=== PATIENT | female | born 1990 | race African-American/Black ===

== ENCOUNTER 2016-10-04 01:25 | Emergency (ER) | payer OTHER ==
[2016-10-04] MEDS ORDERED: cefTRIAXone 250 MG VIAL IM STA (04:07)
[2016-10-04] MEDS ORDERED: AZITHROMYCIN 250 MG TABLET PO STA (04:07)
[2016-10-04] MEDS ORDERED: cefTRIAXone 250 MG VIAL ONE (04:16)
[2016-10-04] MEDS ORDERED: AZITHROMYCIN 250 MG TABLET PO ONE (04:16)
[2016-10-04] MEDS ORDERED: LIDOCAINE-MPF 1% 5 ML VIAL ONE (04:16)
== END 2016-10-04 04:38 | disposition home or self-care (01) ==
DX: N72 Inflammatory disease of cervix uteri (principal); R03.0 Elevated blood-pressure reading, without diagnosis of hypertension
CPT/HCPCS: 81001; 81025; 87077; 87086; 87181; 87210; 87491; 87591; 96372; 99283; A9270

== ENCOUNTER 2020-05-03 04:34 | Emergency (ER) | payer OTHER ==
--- NOTE | 2020-05-03 05:23 | ED Physician Documentation ---
PD HPI ABD PAIN - Stated complaint Stated Complaint: ABD PX - Chief complaint Chief Complaint: Abd Pain - History obtained from History obtained from: Patient - History of Present Illness Timing - onset: How many days ago (3) Timing - details: Intermittant, Waxing and waning Pain level now: 3 Quality: Pain, Other (burning) Location: All over / everywhere Improved by: Other (no ameliorating factors) Worsened by: Other (no exacerbating factors) Associated symptoms: Nausea. No: Vomiting Similar symptoms before: Has not had sx before - Additional information Additional information: c/o episodic abdominal burning pain since 3 days ago, occasionally associated with nausea and mild fatigue. she had a single alcoholic drink 4 days ago and thus thought the following day was a mild hangover, and she felt better the following day. yesterday, the burning abdominal discomfort returned and thus she was seen at [facility], no tests nor specific diagnosis. she presents at thus time due to being woken 2 AM with burning abdominal discomfort, diffuse, that prevented her from falling back asleep. denies nausea at this time. Review of Systems Constitutional: reports: Fatigue. denies: Fever Cardiac: reports: Reviewed and negative Respiratory: reports: Reviewed and negative GI: reports: Abdominal Pain. denies: Nausea, Vomiting, Constipation, Diarrhea, Hematemesis, Bloody / black stool : denies: Dysuria, Frequency, Now EGA PD PAST MEDICAL HISTORY - Past Medical History Past Medical History: No - Past Surgical History Past Surgical History: No - Present Medications Home Medications: Ambulatory Orders Medication Instructions Recorded Confirmed Ondansetron Odt [Zofran] 4 mg TL Q6H PRN #10 tablet 05/16/15 05/03/20 - Allergies Allergies/Adverse Reactions: Allergies Allergy/AdvReac Type Severity Reaction Status Date / Time No Known Drug Allergies Allergy Verified 05/03/20 04:46 - Social History Does the pt smoke?: No Smoking Status: Never smoker Does the pt drink ETOH?: No Does the pt have substance abuse?: No - Immunizations Immunizations are current?: Yes - POLST Patient has POLST: No PD ED PE NORMAL - Vitals Vital signs reviewed: Yes - General General: Alert and oriented X 3, No acute distress, Well developed/nourished - Cardiac Cardiac: RRR, No murmur - Respiratory Respiratory: No respiratory distress, Clear bilaterally - Abdomen Abdomen: Normal bowel sounds, Soft, Non tender, Non distended, No organomegaly - Back Back: No CVA TTP Results - Vitals Vitals: Vital Signs - 24 hr 05/03/20 05/03/20 04:41 07:24 Temperature 36.6 C Heart Rate 95 88 Respiratory 18 14 Rate Blood Pressure 126/80 126/79 O2 Saturation 98 99 Oxygen O2 Source Room air - Labs Labs: Laboratory Tests 05/03/20 05/03/20 05/03/20 05:15 05:50 05:50 WBC 7.4 RBC 4.46 Hgb 13.1 Hct 40.5 MCV 90.8 MCH 29.4 MCHC 32.3 RDW 13.2 Plt Count 304 MPV 9.8 Neut # (Auto) 5.5 Lymph # (Auto) 1.4 L Hand # (Auto) 0.4 Eos # (Auto) 0.1 Baso # (Auto) 0.0 Absolute Nucleated RBC 0.00 Nucleated RBC % 0.0 Sodium 135 Potassium 4.2 Chloride 103 Carbon Dioxide 24 Anion Gap 8.0 BUN 12 Creatinine 0.8 Estimated GFR (MDRD) 103 Glucose 102 H Calcium 9.4 Total Bilirubin 0.5 AST 16 ALT 18 Alkaline Phosphatase 60 Total Protein 7.7 Albumin 4.1 Globulin 3.6 Albumin/Globulin Ratio 1.1 Lipase 37 Urine Color YELLOW Urine Clarity CLEAR Urine pH 6.0 Ur Specific Concan >=1.030 H Urine Protein NEGATIVE Urine Glucose (UA) NEGATIVE Urine Ketones NEGATIVE Urine Occult Blood NEGATIVE Urine Nitrite NEGATIVE Urine Bilirubin NEGATIVE Urine Urobilinogen 0.2 (NORMAL) Ur Leukocyte Esterase NEGATIVE Ur Microscopic Review NOT INDICATED Urine Culture Comments NOT INDICATED - Rads (name of study) abd. xrays Radiology: Prelim report reviewed, See rad report PD MEDICAL DECISION MAKING - ED course Complexity details: reviewed results, re-evaluated patient, considered differential, d/w patient Departure - Departure Disposition: 01 Home, Self Care Clinical Impression: Abdominal pain Condition: Good Instructions: ED Abdominal Pain Unkn Cause, ED Constipation Discharge Date/Time: 05/03/20 07:24
[2020-05-03 05:26] LABS: BILIRUBIN,URINE NEGATIVE (NEGATIVE); GLUCOSE, URINE (UA) NEGATIVE (NEGATIVE); KETONES,URINE (UA) NEGATIVE (NEGATIVE); LEUKOCYTE ESTERASE, URINE NEGATIVE (NEGATIVE); NITRITE,URINE NEGATIVE (NEGATIVE); OCCULT BLOOD,URINE NEGATIVE (NEGATIVE); PROTEIN,URINE NEGATIVE (NEGATIVE); UROBILINOGEN,URINE 0.2 (NORMAL) E.U./dL (NORMAL)
[2020-05-03 05:28] LABS: CLARITY,URINE CLEAR (CLEAR)
[2020-05-03 05:56] LABS: BASOPHILS % (AUTO) 0.3 %; EOSINOPHILS # (AUTO) 0.1 10^3/uL (0.0-0.7); HGB - HEMOGLOBIN 13.1 g/dL (12.0-16.0); LYMPHOCYTES # (AUTO) 1.4 10^3/uL (1.5-3.5); MEAN CORPUSCULAR HEMOGLOBIN 29.4 pg (27.0-31.0); MEAN CORPUSCULAR HGB CONC 32.3 g/dL (32.0-36.0); MEAN CORPUSCULAR VOLUME 90.8 fL (81.0-99.0); MEAN PLATELET VOLUME 9.8 fL (7.9-10.8); MONOCYTES # (AUTO) 0.4 10^3/uL (0.0-1.0); NEUTROPHILS # (AUTO) 5.5 10^3/uL (1.5-6.6); NEUTROPHILS % (AUTO) 74.4 %; PLT - PLATELET COUNT 304 10^3/uL (130-450); RED BLOOD COUNT 4.46 10^6/uL (4.20-5.40); RED CELL DISTRIBUTION WIDTH 13.2 % (12.0-15.0); WHITE BLOOD COUNT 7.4 x10^3/uL (4.8-10.8)
[2020-05-03 06:09] LABS: ALBUMIN 4.1 g/dL (3.2-5.5); ALBUMIN/GLOBULIN RATIO 1.1 (1.0-2.2); BILIRUBIN,TOTAL 0.5 mg/dL (0.2-1.0); CALCIUM 9.4 mg/dL (8.5-10.3); CREATININE 0.8 mg/dL (0.4-1.0); TOTAL PROTEIN 7.7 g/dL (6.7-8.2)
[2020-05-03] MEDS ORDERED: MAGNESIUM CITRATE 296 ML BOTTLE PO STA (07:00)
[2020-05-03] MEDS ORDERED: ACETAMINOPHEN 325 MG TABLET PO STA (07:01)
[2020-05-03] MEDS ORDERED: LIDOCAINE VISCOUS 2% 15 ML UDC MM STA (07:11)
[2020-05-03] MEDS ORDERED: MAG HYDROX/AL HYDROX/SIMETH 30 ML UDC PO STA (07:12)
[2020-05-03 07:25] VITALS: BP 126/79
--- NOTE | 2020-05-03 08:10 | XRAY Report ---
PROCEDURE: Abdomen Acute INDICATIONS: abd. pain TECHNIQUE: One view chest and two views of the abdomen were acquired. COMPARISON: None FINDINGS: Surgical changes and devices: Intrauterine device projects over the midline of the lower pelvis.. Chest: Lungs are clear. Heart size is normal. No pleural effusions. No pneumoperitoneum. Abdomen: Bowel gas pattern is normal. Moderate amount of stool noted throughout the colon. No suspic ious calcifications. Visualized solid organ contours appear normal. Bones: No suspicious bony lesions. IMPRESSION: Moderate colonic fecal loading. Please correlate with clinical data. Reviewed by: Monica Hameed MD, PhD on 05/03/2020 8:08 AM PDT Approved by: Monica Hameed MD, PhD on 05/03/2020 8:08 AM PDT Station ID: [id number]
== END 2020-05-03 07:24 | disposition home or self-care (01) ==
LOC: ED 04:34
DX: R10.84 Generalized abdominal pain (principal); R11.0 Nausea; R53.83 Other fatigue
CPT/HCPCS: 36415; 74022; 80053; 81003; 83690; 85025; 99284; A9270; 81001; 81025; 87086

== ENCOUNTER 2020-12-24 04:06 | Outpatient (CLI) | payer OTHER | END 2020-12-24 04:07 | disposition EMS.NT | LOC: EMS 04:06 | DX: O99.891 Other specified diseases and conditions complicating pregnancy (principal); R10.9 Unspecified abdominal pain; Z3A.00 Weeks of gestation of pregnancy not specified ==

== ENCOUNTER 2020-12-24 04:50 | Outpatient (CLI) | payer OTHER | END 2020-12-24 04:51 | disposition short-term general hospital (02) | LOC: EMS 04:50 | DX: O99.891 Other specified diseases and conditions complicating pregnancy (principal); R10.9 Unspecified abdominal pain; Z3A.00 Weeks of gestation of pregnancy not specified | CPT/HCPCS: A0425; A0429 ==

== ENCOUNTER 2021-04-10 09:09 | Outpatient (CLI) | payer OTHER ==
--- NOTE | 2021-04-10 13:47 | MRI Report ---
PROCEDURE: Shoulder LT W/O INDICATIONS: PAIN IN LEFT SHOULDER TECHNIQUE: Noncontrast oblique coronal T2 fast spin echo with fat saturation, oblique sagittal T1 spin echo and T2 fast spin echo with fat saturation, axial T1 spin echo and T2 fast spin echo with fat saturation t hrough the shoulder. COMPARISON: None. FINDINGS: Image quality: Excellent. Rotator cuff: Mild diffuse T2 signal elevation throughout the supraspinatus and infraspinatus tendon s at the humeral insertion sites, indicating tendinopathy. The supraspinatus, infraspinatus, and subs capularis tendons appear intact throughout. No rotator cuff muscle atrophy on sagittal images. Bones and bursae: No bone marrow contusions or fractures. No acromioclavicular joint degeneration. The acromion demonstrates conventional anatomy, without an os acromiale. No pathologic subacromial/ subdeltoid bursal fluid is present. Capsule and soft tissues: There is mild T2 signal elevation within the anterior glenoid with mild irr egularity of the overlying glenoid labrum. The long head of the biceps tendon demonstrates normal loc ation and morphology. The rotator interval appears normal, without fibrosis. The coracohumeral liga ment is normal in thickness. IMPRESSION: 1. Supraspinatus and infraspinatus tendinopathy. No evidence of rotator cuff tear. 2. Possible subtle anteroinferior glenoid labral tear. Reviewed by: Shawnee Marx MD on 04/10/2021 1:45 PM PDT Approved by: Shawnee Marx MD on 04/10/2021 1:45 PM PDT Station ID: [id number]
== END 2021-04-10 09:10 | disposition home or self-care (01) ==
LOC: DI 09:09
PROVIDERS: ATTEND Family Medicine
DX: M75.82 Other shoulder lesions, left shoulder (principal); R93.6 Abnormal findings on diagnostic imaging of limbs

== ENCOUNTER 2021-05-14 17:55 | Emergency (ER) | payer OTHER ==
[2021-05-14 18:13] VITALS: BP 148/93
--- NOTE | 2021-05-14 18:46 | ED Physician Documentation ---
History of Present Illness - Stated complaint Stated Complaint: TENDER CALF MUSCLES - Chief complaint Chief Complaint: Ext Problem - History obtained from History obtained from: Patient - History of Present Illness Pain level max: 6 Pain level now: 4 - Additonal information Additional information: Patient is a 30-year-old female who states that she has had calf pain since December of this year when she had a child. She states that she recently went to an orthopedist for her shoulder and saw on the paperwork that it asked if she had pain in her calf and she started googling and realized this could be a sign of a DVT. Came in for evaluation tonight. Nothing makes it better or worse. Review of Systems Constitutional: denies: Fever, Chills Cardiac: denies: Chest pain / pressure, Palpitations Respiratory: denies: Dyspnea, Cough GI: denies: Vomiting, Diarrhea : denies: Now EGA Skin: denies: Rash Musculoskeletal: denies: Neck pain, Back pain Neurologic: denies: Headache PD PAST MEDICAL HISTORY - Past Medical History Past Medical History: Yes Cardiovascular: None Respiratory: None Neuro: Headaches, Migraines Endocrine/Autoimmune: None GI: GERD MOLD INSPECTOR: None : None HEENT: Other Psych: Anxiety, ADD/ADHD Musculoskeletal: Osteoarthritis Derm: Eczema - Past Surgical History Past Surgical History: No - Present Medications Home Medications: Ambulatory Orders Medication Instructions Recorded Confirmed Dextroamphetamine/Amphetamine 20 mg PO DAILY 05/14/21 05/14/21 [Adderall 20 mg Tablet] Mirtazapine 7.5 mg PO HS 05/14/21 05/14/21 Rizatriptan Benzoate [Rizatriptan] 5 mg PO DAILY PRN 05/14/21 05/14/21 Sertraline HCl 100 mg ORAL DAILY 05/14/21 05/14/21 - Allergies Allergies/Adverse Reactions: Allergies Allergy/AdvReac Type Severity Reaction Status Date / Time No Known Drug Allergies Allergy Verified 05/14/21 18:07 - Social History Does the pt smoke?: No Smoking Status: Never smoker Does the pt drink ETOH?: No Does the pt have substance abuse?: No - Immunizations Immunizations are current?: Yes - POLST Patient has POLST: No PD ED PE NORMAL - Vitals Vital signs reviewed: Yes - General General: Alert and oriented X 3, No acute distress, Well developed/nourished - HEENT HEENT: PERRL, Moist mucous membranes - Neck Neck: Supple, no meningeal sign - Cardiac Cardiac: RRR, Strong equal pulses - Respiratory Respiratory: No respiratory distress, Clear bilaterally - Derm Derm: Warm and dry - Extremities Extremities: No edema, Other (Mild left calf tenderness. No significant swe lling. Neurovascular intact. No skin changes.) - Neuro Neuro: Alert and oriented X 3 - Psych Psych: Normal mood, Normal affect Results - Vitals Vitals: Vital Signs - 24 hr 05/14/21 18:09 Temperature 36.2 C L Heart Rate 103 H Respiratory 18 Rate Blood Pressure 148/93 H O2 Saturation 100 Oxygen O2 Source Room air - Rads (name of study) Duplex ultrasound left lower extremity Radiology: Final report received, EMP read contemporaneously, See rad report (No acute DVT. Small Vargas's cyst) PD MEDICAL DECISION MAKING - ED course Complexity details: reviewed results, re-evaluated patient, considered differential, d/w patient ED course: Patient does not have a DVT but does have a Vargas's cyst on ultrasound. Likely the cause of her symptoms. We will continue supportive care and have her follow-up with her doctor for further care. Patient counseled regarding signs and symptoms for which I believe and urgent re-evaluation would be necessary. Patient with good understanding of and agreement to plan and is comfortable going home at this time This document was made in part using voice recognition software. While efforts are made to proofread this document, sound alike and grammatical errors may occur. Departure - Departure Disposition: 01 Home, Self Care Clinical Impression: Vargas cyst Qualifiers: Laterality: left Qualified Code(s): M71.22 - Synovial cyst of popliteal space [Vargas], left knee Condition: Good Instructions: ED Cyst Vargas Follow-Up: SIDNEY HATCH ARNP [Primary Care Provider] - As Needed Comments: There is no evidence of DVT on your ultrasound today. Please follow-up with your doctor for further care. You do have a small Vargas's cyst. This is not dangerous. Discharge Date/Time: 05/14/21 19:10
--- NOTE | 2021-05-14 19:25 | Ultrasound Report ---
PROCEDURE: Duplex Ext Veins Left INDICATIONS: L leg pain TECHNIQUE: Real-time imaging, as well as color and pulse Doppler interrogation, were performed of the lower extr emity deep veins from the inguinal ligament to the popliteal fossa. COMPARISON: None. FINDINGS: The deep veins are normally compressible, and free of intraluminal thrombus. Color and pu lse Doppler demonstrate normal phasic intraluminal flow. There is normal augmentation response to di stal compression maneuver. Small posterior left knee fluid collection compatible with a Vargas's cyst. It measures 2.7 x 0.9 x 1. 7 cm. IMPRESSION: Negative for deep venous thrombosis of the left lower extremity. 2.7 cm Vargas's/popliteal cyst. Reviewed by: Carlton Lawson MD on 05/14/2021 7:24 PM PDT Approved by: Carlton Lawson MD on 05/14/2021 7:24 PM PDT Station ID: [id number]
== END 2021-05-14 19:10 | disposition home or self-care (01) ==
LOC: ED 17:55
DX: M71.22 Synovial cyst of popliteal space [Baker], left knee (principal)
CPT/HCPCS: 99283

== ENCOUNTER 2021-05-22 08:18 | Outpatient (CLI) | payer OTHER ==
[2021-05-22 09:18] VITALS: BP 120/80
--- NOTE | 2021-05-22 09:18 | SLEEP CARE CONSULTATION ---
Information from patient questionnaire entered by Barbara Ko. I have reviewed and concur with the information entered by Barbara Ko. This document represents the service I personally performed and the decisions made by me, Britany Trammell ARNP. History of Present Illness Service Date and Time: 05/22/2021 08 Reason for Visit: New patient Chief Complaint: reports: Insomnia, Unrefreshed sleep, Snoring, Excessive daytime sleepiness, Frequent awakenings at night Date of Onset: 2012 Usual bedtime: 2029 Time it takes to fall asleep: sometimes I cannot fall asleep Snores at night: Yes Observed to quit breathing while asleep: No Sleeps alone due to snoring: Yes Number of times waking at night: 2-3 Reasons for waking at night: reports: Snoring, Gasping for air, Other (noise, unknown reason) Toss, Turn, or Twitch while sleeping: Yes Recalls having dreams: Yes (sometimes) Usually gets out of bed at: 0600, cannot sleep in Feels refreshed in the morning: No Morning headache: Yes (3 times a week, takes Maxalt and they go away) Sleepy or fatigued during the day: Yes Ever fallen asleep while driving: No (almost; drowsy driving) Takes day naps: No (cannot, feels disoriented if she does) Dreams during day naps: No Prior sleep studies: No Additional HPI information: I had the pleasure of seeing ALONDRA BABCOCK today regarding the possibility of her having a sleep disorder. Her current complaints are excessive daytime sleepiness, frequent night awakenings, insomnia, snoring and unrefreshed sleep. She states she has not been able to sleep for a couple years. About a year after joining [employer] she started to not be able to sleep. 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 She tried lots of OTC meds to help her sleep. She was then put on Trazodone which did help her got to sleep for a while but then stopped working. She is now on Mirtazepine but she is very sleepy at work when using this medication. She will even fall asleep standing up unless she is walking around. She has a hard time going to sleep and once asleep will wake up frequently throughout the night. She states her has told her she snores and she has heard herself snoring. She will wake up feeling like she needs to take a deep breath and her heart is beating fast. Her has not noticed her having any pauses in breathing. - Parasomnia Symptoms Ever been unable to move upon waking from sleep: Yes (not for a couple months; occasional) Walks in sleep: No Talks in sleep: Yes Ever acted out dreams in sleep: Yes (not sure) Ever felt weak in the knees when startled or emotional: Yes Bothered by creepy, crawly, restless sensations in legs: Yes (every night; she is always moving) Problems with memory or concentration: Yes (both; memory is getting worse, taking adderall for concentration) Subjective Initial Madison Sleepiness Scale score: 9 (in 2020) Past Medical History Past Medical History: reports: Dysphagia, Arthritis, Anxiety, Depression, GERD, Attention deficit, Other (eczema, pain in left shoulder torn labriel, pain in back, mcallister cyst left calf diagnosed, right undiagnosed, psoriasis, dermatitis) Social History 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 Patient is Single and lives in [place]. Have you smoked in the past 12 months: No Alcohol use: No Caffeine use: No Family History Family history of sleep disordered breathing: Yes Family Hx Sleep Apnea: Mother: Snoring, Sleep apnea - Untreated, Father: Snoring, Sleep apnea - Treated, Sibling: Snoring, Sleep apnea - Untreated, Grandparent: Snoring, Sleep apnea - Treated Allergies and Home Medications Drug allergies reviewed: Yes (NKDA) Home medication list reviewed: Yes Allergy and home medication list: Sertraline 100 mg Mirtazapine 15 mg Maxalt 5 mg Adderall XR 20 mg Review of Systems Weight gain over past 5 years: 50 Cardiovascular: reports: leg or foot swelling, have to sleep sitting up. denies: high blood pressure Gastrointestinal: reports: heartburn, difficulty swallowing, nausea, vomitting, diarrhea, abdominal pain Neurological: reports: headaches, gait or balance problems Psychiatric: reports: Attention Deficit Hyperactivity, anxiety, depression Ear/Nose/Throat: reports: nasal congestion, sinus problems, nose bleeds, dry mouth/throat, hoarseness, wisdom teeth removed. denies: injury to nose, tonsillectomy Endocrine: reports: sluggishness, too hot or cold, unexplained weakness Musculoskeletal: reports: joint pain, back pain, joint swelling, muscle pain or cramping Immunologic: reports: sneezing, rash, itching Physical Exam Blood Pressure: 120/80 Cuff size: long Heart Rate: 97 O2 Saturation: 98 Height: 5 ft 3 in Weight: 256 lb Body Mass Index: 45.3 BMI Classification: Morbidly Obese Neck circumference: 15 (inches) Mouth and throat: narrow oropharynx Soft palate: long Hard palate: normal Uvula: normal Uvula visualization: 50% Mallampati Class II Tongue: enlarged in size with teeth ponce on lateral edges Tonsils: 1+ Neck: normal w/o lymphadenopathy or thyromegaly Heart: regular rate and rhythm Lungs: clear bilaterally Impression and Plan 1. Suspected Obstructive Sleep Apnea-Hypopnea Syndrome, as suggested by a history of loud and irregular snoring, gasping or choking in sleep, morning headache, frequent awakening during the night, unrefreshed sleep, cognitive impairment, and excessive daytime sleepiness. Narrow oropharynx and obesity are common predisposing factors for obstructive sleep apnea-hypopnea syndrome. I recommend proceeding to polysomnography to confirm the diagnosis and to assess severity. If the patient has significant sleep disordered breathing, a manual CPAP titration study will also be performed to find the optimal treatment pressure. I informed the patient of what the sleep studies involve and after some discussion, obtained agreement to proceed. The pathophysiology of obstructive sleep apnea-hypopnea syndrome was discussed with the patient and [facility] risks of cardiovascular and cerebrovascular disease if not treated. [facility] brochure for obstructive sleep apnea-hypopnea syndrome given and reviewed. Risks of drowsy driving discussed in detail and patient advised to avoid long distance driving and to head well puller at the first sign of drowsiness. Patient agreed to plan. [facility] drowsy driving brochure given. * Schedule polysomnography +- manual CPAP titration study and return in 1-2 weeks after the study to discuss result and initiate therapy. * Avoid long distance driving or driving when feeling sleepy. * Avoid alcohol, sedative and muscle relaxant around bedtime. * Attempt to lose weight. * Review instructions provided by trained office staff on how to prepare for the sleep study. * Return for follow-up after sleep study completed. Counseling Topics: Weight loss health impact Visit Type: In Office Time Spent with Patient (minutes): 37 Provider Statement: I spent 100% of the Face to Face Visit with the patient with greater than 50% spent counseling the patient and coordination of care.
== END 2021-05-22 08:19 | disposition home or self-care (01) ==
LOC: SC 08:18
PROVIDERS: ATTEND Nurse Practitioner Family
DX: R06.83 Snoring (principal); G47.8 Other sleep disorders; R51.9 Headache, unspecified; G47.10 Hypersomnia, unspecified; R41.89 Other symptoms and signs involving cognitive functions and awareness; E66.01 Morbid (severe) obesity due to excess calories; Z68.42 Body mass index [BMI] 45.0-49.9, adult
CPT/HCPCS: 99203; 99212

== ENCOUNTER 2021-05-30 19:39 | Outpatient (CLI) | payer OTHER | END 2021-05-30 19:40 | disposition home or self-care (01) | LOC: SC 19:39 | PROVIDERS: ATTEND Nurse Practitioner Family | DX: F32.9 Major depressive disorder, single episode, unspecified (principal); G47.33 Obstructive sleep apnea (adult) (pediatric) | CPT/HCPCS: 95810 ==

== ENCOUNTER 2021-06-05 10:01 | Outpatient (CLI) | payer OTHER ==
[2021-06-05 11:00] VITALS: BP 150/100
--- NOTE | 2021-06-05 11:00 | SLEEP CARE CONSULTATION ---
Information from patient questionnaire entered by Barbara Ko. I have reviewed and concur with the information entered by Barbara Ko. This document represents the service I personally performed and the decisions made by me, Britany Trammell ARNP. History of Present Illness Service Date and Time: 06/05/2021 1001 Initial [place] Sleepiness Scale score: 9 (in 2020) Current [place] Sleepiness Scale score: 12 Additional HPI information: ALONDRA BABCOCK returns for follow up and results of the recently performed polysomnography. I explained the pathophysiology behind obstructive sleep apnea. We then spent quite a bit of time discussing different treatment options. For mild obstructive sleep apnea, surgery and oral appliance are alternatives to nasal CPAP therapy but in moderate or severe cases, nasal CPAP is the most effective a nd reliable treatment. Because apnea is primarily in supine position, then positional management therapy could be effective. Methods discussed such as positioning with pillows, using a T-shirt with tennis balls in the back. I reviewed the impact of weight changes on sleep apnea and strongly recommended losing weight. After some discussion, the patient opted to go with the nasal CPAP therapy. Nasal autoCPAP set at 4-15 cmH20 will be ordered with rationale explained. A manual titration study will be ordered if unable to find optimal pressure with office adjustments. I explained how CPAP machine works with sample devices [employer] Dreamstation and Qwikwire [id number] and what to expect when using the machine. Using CPAP every night in order to get used to it was emphasized. Patient advised to put CPAP mask on before getting into bed so as not to fall asleep without CPAP. To assist acclimation to CPAP use, it could also be used for a short time during day while reading or watching TV. The patient was instructed to call the CPAP supplier to discuss any mechanical problem that may occur. If the mask given is uncomfortable or is difficult to keep on through the night even with adjustment, contact the CPAP supplier as many will replace with another mask style if notified before 30 days. If snoring or perceives is not getting enough air or too much air from the machine, notify this office. AASM patient education PAP tips reviewed and given to patient. Patient does not drink alcohol. Patient was cautioned about risks of drowsy driving until sleepiness symptoms resolve. Sleep Study - Results Type of Sleep Study: Polysomnography Prior sleep studies: Yes Year and Where: 05/2021 [facility] Polysomnography/Home Sleep Study results: IMPRESSION: The quality of the study is good. The patient had normal sleep efficiency. The sleep architecture was abnormal for sleep fragmentation and reduced amount of time spent in slow wave sleep (N3). Respiratory monitoring showed severe obstructive sleep apnea-hypopnea (AHI = 31.6) associated with frequent arousals, oxyhemoglobin desaturation and moderate hypoxia (jennifer oxygen saturation of 77%). The respiratory events occurred slightly more frequently during supine sleep (supine AHI = 34.7; non-supine = 16.28). Snore was loud in intensity. There was no significant periodic leg movement of sleep. Cardiac rhythm was normal sinus rhythm without significant arrhythmia except occasional tachycardia. No abnormal behavior (parasomnia) observed during the night. - Discussion Sleep Study discussion: Patient also was noted to talk in her sleep according to the household appliances service technician notes. Allergies and Home Medications Home medication list reviewed: Yes (no changes) Review of Systems Review of systems same as previous: Yes (no changes) Physical Exam Blood Pressure: 150/100 Cuff size: large Heart Rate: 104 O2 Saturation: 97 Height: 5 ft 3 in Weight: 263 lb Body Mass Index: 46.5 BMI Classification: Morbidly Obese Impression and Plan 1. Obstructive Sleep Apnea-Hypopnea Syndrome, severe, with lowest oxygen saturation of 77%. Obviously this is the cause of the patients symptoms of unrefreshed sleep, and excessive daytime sleepiness. Positive pressure therapy could benefit anxiety, depression and gastric reflux. As mentioned above, the patient will be started on nasal autoCPAP therapy with pressure set at 4-15 cmH2 O. A manual titration study will be completed if unable to find optimal treatment pressure with office adjustments. Compliance guidelines also reviewed. A copy of compliance guidelines will be given for reference at check out. Because the apnea is more severe supine, I instructed to avoid sleeping supine using pillow positioning until able to start CPAP use. 2. Hypoxemia, moderate. Patient has a jennifer oxygen saturation of 77% with a normal average oxygen saturation of 94% and 21.50 minutes with oxygen less than 90%. 3. Elevated blood pressure in patient without diagnosis of hypertension. Her initial blood pressure was 158/105 manually, rechecked at end of her appointment and was 148/100. Patient denies chest pain, shortness of breath or headaches. Patient states she has been having elevated pressures at medical visits. She has not yet been able to talk to her PCP about them. I advised her to try and make an appointment to have her blood pressure checked due to risks to her health. She voiced understanding. * Nasal auto CPAP therapy, pressure at 4-15 cm H2O. * Attempt to lose weight. * Avoid alcohol consumption near bedtime. * Avoid supine sleep until using CPAP. * The patient is again cautioned about driving until sleepiness completely resolves. * Return one month after CPAP obtained. I will assess response to therapy and compliance at that time. Counseling Topics: Weight loss health impact Follow up with: PCP (for elevated blood pressure) Visit Type: In Office Time Spent with Patient (minutes): 22 Provider Statement: I spent 100% of the Face to Face Visit with the patient with greater than 50% spent counseling the patient and coordination of care.
== END 2021-06-05 10:02 | disposition home or self-care (01) ==
LOC: SC 10:01
PROVIDERS: ATTEND Nurse Practitioner Family
DX: G47.33 Obstructive sleep apnea (adult) (pediatric) (principal); E66.01 Morbid (severe) obesity due to excess calories; Z68.42 Body mass index [BMI] 45.0-49.9, adult; R09.02 Hypoxemia; R03.0 Elevated blood-pressure reading, without diagnosis of hypertension
CPT/HCPCS: 99212; 99213

== ENCOUNTER 2021-09-30 08:37 | Emergency (ER) | payer OTHER ==
[2021-09-30 08:53] VITALS: BP 124/60
--- NOTE | 2021-09-30 08:54 | ED Physician Documentation ---
PD HPI URI - Stated complaint Stated Complaint: THROAT/EAR PX - Chief complaint Chief Complaint: Heent - History obtained from History obtained from: Patient - History of Present Illness Timing - onset: How many days ago (6-7) Timing duration: Days (6-7) Timing details: Abrupt onset, Still present Associated symptoms: Chills, Sore throat, Swollen nodes. No: Nasal congestion, Sinus pain, Dry cough, NVD Contributing factors: No: Sick contact, Travel, Unimmunized Similar symptoms before: Has not had sx before Recently seen: Clinic (2 days ago for these symptoms,) Review of Systems Constitutional: reports: Chills Nose: denies: Rhinorrhea / runny nose, Congestion Throat: reports: Sore throat, Swollen tonsils Respiratory: denies: Dyspnea, Cough GI: denies: Nausea, Vomiting, Diarrhea Skin: denies: Rash PD PAST MEDICAL HISTORY - Past Medical History Cardiovascular: None Respiratory: None Neuro: Headaches, Migraines Endocrine/Autoimmune: None GI: GERD 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 : None HEENT: Other Psych: Anxiety, ADD/ADHD Musculoskeletal: Osteoarthritis Derm: Eczema - Past Surgical History Past Surgical History: No - Present Medications Home Medications: Ambulatory Orders Medication Instructions Recorded Confirmed Sertraline HCl 100 mg ORAL DAILY 05/14/21 09/30/21 Alprazolam [Xanax] 0.25 mg PO DAILY PRN 09/30/21 09/30/21 HYDROcod/ACETAM 5/325 [Lowpoint 5/325] 1 ea PO Q6H PRN #10 tablet 09/30/21 Omeprazole Magnesium [Prilosec] 10 mg PO DAILY 09/30/21 09/30/21 dexAMETHasone [Decadron] 4 mg PO DAILY #5 tablet 09/30/21 diphenhydrAMINE ELIXIR [Benadryl 25 mg PO Q6H PRN #240 ml 09/30/21 Elixir] - Allergies Allergies/Adverse Reactions: Allergies Allergy/AdvReac Type Severity Reaction Status Date / Time No Known Drug Allergies Allergy Verified 09/30/21 08:46 - Social History Does the pt smoke?: No Smoking Status: Never smoker Does the pt drink ETOH?: No Does the pt have substance abuse?: No - Immunizations Immunizations are current?: Yes - POLST Patient has POLST: No PD ED PE NORMAL - Vitals Vital signs reviewed: Yes - General General: Alert and oriented X 3, Well developed/nourished - HEENT HEENT: Ears normal. No: Pharynx benign (tonsils enlarged with some white exudate more to left. No peritonsillar swelling. Mild anterior adenopathy. ) - Neck Neck: Supple, no meningeal sign - Cardiac Cardiac: RRR, No murmur - Respiratory Respiratory: Clear bilaterally - Derm Derm: Normal color, Warm and dry, No rash Results - Vitals Vitals: Vital Signs - 24 hr 09/30/21 08:45 Temperature 36.9 C Heart Rate 91 Respiratory 19 Rate Blood Pressure 124/60 O2 Saturation 98 Oxygen O2 Source Room air PD MEDICAL DECISION MAKING - ED course Complexity details: considered differential (had rapid strep negative at [facility] with culture pending, but due to weekend, will not get result for 2 more days. Can treat empirically due to Centor 3/ pending culture. ), d/w patient Departure - Departure Disposition: Home, Self Care Clinical Impression: Acute pharyngitis Qualifiers: Pharyngitis/tonsillitis etiology: unspecified etiology Qualified Code(s): J02.9 - Acute pharyngitis, unspecified Condition: Stable Record reviewed to determine appropriate education?: Yes Instructions: ED Strep Pharyngitis Poss Follow-Up: SIDNEY HATCH ARNP [Primary Care Provider] - Prescriptions: diphenhydrAMINE ELIXIR [Benadryl Elixir] 25 mg PO Q6H PRN #240 ml PRN Reason: Pain dexAMETHasone [Decadron] 4 mg PO DAILY #5 tablet HYDROcod/ACETAM 5/325 [Lowpoint 5/325] 1 ea PO Q6H PRN #10 tablet PRN Reason: Pain Comments: Frequent fluids. Use Tylenol every 4-6 hours if needed for pain. Diphenhydramine (Benadryl) liquid 10 mL every 6 hours if needed for throat pain. It does act as a local numbing in the throat so actually swish it around a little bit before swallowing. You got a injection of a long-acting penicillin for potential strep throat. Follow-up with your [facility] clinic to find the culture results on Friday. Add hydrocodone every 4-6 hours if needed for pain. I would anticipate only needing this the first couple of days. I transmitted your prescriptions to [facility] pharmacy in [place]. I am prescribing a short course of narcotic pain medication for you. These are potentially dangerous and addictive medications that should be used carefully. These medications may constipate you. Take an ewqm-gws-bmxyqwq stool softener such as docusate twice daily with plenty of water while taking these medications. If you go 24 hours without a bowel movement, take [id number] MiraLAX, per package instructions. Do not drink or drive while taking these medications. If you received narcotic or sedating medications while in the emergency department do not drive for 24 hours. Store this medication in a safe, secure place and out of reach of children. It is a violation of federal law to give or sell this medication to another person or to use in a manner other than prescribed. The ED will not refill narcotic prescriptions, including prescriptions lost or stolen. You can dispose of unwanted medications at the [facility]'s office or at several pharmacies such as [facility]. Discharge Date/Time: 09/30/21 09:45
[2021-09-30] MEDS ORDERED: PENICILLIN G BENZATHINE 600,000 UNIT/ML SYRINGE IM STA (09:14)
[2021-09-30] MEDS ORDERED: ACETAMINOPHEN 160 MG/5 ML SUSP UDC PO STA (09:15)
[2021-09-30] MEDS ORDERED: DEXAMETHASONE 10 MG/ML VIAL PO STA (09:15)
[2021-09-30] MEDS ORDERED: diphenhydrAMINE ELIXIR 25 MG/10 ML UDC PO STA (09:15)
[2021-09-30] MEDS ORDERED: CHERRY SYRUP 10 ML UDC PO ONE (09:28)
== END 2021-09-30 09:45 | disposition home or self-care (01) ==
LOC: ED 08:37
DX: J02.9 Acute pharyngitis, unspecified (principal)
CPT/HCPCS: 96372; 99282; 99283; A9270

== ENCOUNTER 2022-02-08 12:16 | Emergency (ER) | payer OTHER ==
[2022-02-08 13:08] LABS: BASOPHILS % (AUTO) 0.2 %; EOSINOPHILS # (AUTO) 0.1 10^3/uL (0.0-0.7); EOSINOPHILS % (AUTO) 1.7 %; HCT - HEMATOCRIT 44.7 % (37.0-47.0); HGB - HEMOGLOBIN 14.5 g/dL (12.0-16.0); LYMPHOCYTES # (AUTO) 2.5 10^3/uL (1.5-3.5); LYMPHOCYTES % (AUTO) 31.7 %; MEAN CORPUSCULAR HEMOGLOBIN 28.3 pg (27.0-31.0); MEAN CORPUSCULAR HGB CONC 32.4 g/dL (32.0-36.0); MEAN CORPUSCULAR VOLUME 87.3 fL (81.0-99.0); MEAN PLATELET VOLUME 9.9 fL (7.9-10.8); MONOCYTES # (AUTO) 0.3 10^3/uL (0.0-1.0); MONOCYTES % (AUTO) 4.2 %; PLT - PLATELET COUNT 323 10^3/uL (130-450); RED BLOOD COUNT 5.12 10^6/uL (4.20-5.40); RED CELL DISTRIBUTION WIDTH 13.8 % (12.0-15.0)
[2022-02-08 13:22] LABS: ALBUMIN 4.4 g/dL (3.2-5.5); ALBUMIN/GLOBULIN RATIO 1.1 (1.0-2.2); BILIRUBIN,TOTAL 0.2 mg/dL (0.2-1.0); CALCIUM 9.7 mg/dL (8.5-10.3); CREATININE 0.8 mg/dL (0.4-1.0); POTASSIUM 3.8 mmol/L (3.5-5.0); TOTAL PROTEIN 8.3 g/dL (6.7-8.2)
--- NOTE | 2022-02-08 13:23 | ED Physician Documentation ---
PD HPI CHEST PAIN - Stated complaint Stated Complaint: CHEST PAIN/SOA - Chief complaint Chief Complaint: Cardiac - History obtained from History obtained from: Patient - History of Present Illness Timing - onset: How many weeks ago (several) Timing - onset during: Light activity Timing - details: Gradual onset, Waxing and waning Quality: Aching, Sharp, Pain Location: Left chest (under left breast area) Radiation: Back. No: Jaw, Neck Improved by: Rest Worsened by: Exertion, Inspiration, Movement Associated symptoms: Shortness of air. No: Nausea, Vomiting, General Weakness, Palpitations, Cough Similar symptoms before: Has not had sx before Recently seen: Clinic (She was seen at clinic and had a normal chest x-ray and basic blood test. EKG was ordered and done outpatient 2 days ago and she was told there was a mass pressing on her heart. She was told to come to the ER for evaluation.) Review of Systems Constitutional: denies: Fever, Chills Nose: denies: Rhinorrhea / runny nose, Congestion Throat: denies: Sore throat Cardiac: reports: Chest pain / pressure. denies: Palpitations, Pedal edema, Calf pain Respiratory: reports: Dyspnea, Cough (mild). 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 : None HEENT: Other Psych: Anxiety, ADD/ADHD Musculoskeletal: Osteoarthritis Derm: Eczema - Past Surgical History Past Surgical History: No - Present Medications Home Medications: Ambulatory Orders Medication Instructions Recorded Confirmed Alprazolam [Xanax] 0.25 mg PO DAILY PRN 09/30/21 02/08/22 Omeprazole Magnesium [Prilosec] 10 mg PO DAILY 09/30/21 02/08/22 hydroCHLOROthiazide [Hydrodiuril] 12.5 mg PO DAILY 02/08/22 02/08/22 - Allergies Allergies/Adverse Reactions: Allergies Allergy/AdvReac Type Severity Reaction Status Date / Time No Known Drug Allergies Allergy Verified 02/08/22 12:41 - Social History Does the pt smoke?: No Smoking Status: Never smoker Does the pt drink ETOH?: No Does the pt have substance abuse?: No - Immunizations Immunizations are current?: Yes - POLST Patient has POLST: No PD ED PE NORMAL - Vitals Vital signs reviewed: Yes - General General: Alert and oriented X 3, No acute distress, Well developed/nourished - HEENT HEENT: Pharynx benign - Neck Neck: Supple, no meningeal sign, No adenopathy - Cardiac Cardiac: No murmur. No: RRR (tachycardic but regular) - Respiratory Respiratory: No respiratory distress, Clear bilaterally, Other (no chestwall tenderness palpated. ) - Abdomen Abdomen: Soft, Non tender - Derm Derm: Normal color, Warm and dry - Extremities Extremities: No edema, No calf tenderness / cord - Neuro Neuro: Alert and oriented X 3, No motor deficit, Normal speech Results - Vitals Vitals: Vital Signs - 24 hr 02/08/22 02/08/22 02/08/22 12:38 13:42 14:21 Heart Rate 107 H 106 H 102 H Respiratory 18 16 16 Rate Blood Pressure 148/110 H 121/87 H 109/86 H O2 Saturation 100 100 100 Oxygen O2 Source Room air - EKG (time done) 12:49 Rate: Rate (enter#) (106) Rhythm: Sinus tachycardia [place]: Normal Intervals: Normal [place] QRS: Normal Ischemia: Normal ST segments. No: ST elevation c/w ischemia, ST depression - Labs Labs: Laboratory Tests 02/08/22 02/08/22 02/08/22 13:04 13:04 13:04 WBC 8.0 RBC 5.12 Hgb 14.5 Hct 44.7 MCV 87.3 MCH 28.3 MCHC 32.4 RDW 13.8 Plt Count 323 MPV 9.9 Neut # (Auto) 5.0 Lymph # (Auto) 2.5 [place] # (Auto) 0.3 Eos # (Auto) 0.1 Baso # (Auto) 0.0 Absolute Nucleated RBC 0.00 Nucleated RBC % 0.0 Sodium 137 Potassium 3.8 Chloride 101 Carbon Dioxide 25 Anion Gap 11.0 BUN 15 Creatinine 0.8 Estimated GFR (MDRD) 101 Glucose 89 Calcium 9.7 Total Bilirubin 0.2 AST 21 ALT 24 Alkaline Phosphatase 68 Troponin I High Sens 2.8 C-Reactive Protein B-Natriuretic Peptide Total Protein 8.3 H Albumin 4.4 Globulin 3.9 Albumin/Globulin Ratio 1.1 Lipase 36 02/08/22 02/08/22 13:04 13:04 WBC RBC Hgb Hct MCV MCH MCHC RDW Plt Count MPV Neut # (Auto) Lymph # (Auto) [place] # (Auto) Eos # (Auto) Baso # (Auto) Absolute Nucleated RBC Nucleated RBC % Sodium Potassium Chloride Carbon Dioxide Anion Gap BUN Creatinine Estimated GFR (MDRD) Glucose Calcium Total Bilirubin AST ALT Alkaline Phosphatase Troponin I High Sens C-Reactive Protein < 1.0 B-Natriuretic Peptide 8 Total Protein Albumin Globulin Albumin/Globulin Ratio Lipase - Rads (name of study) chest xray Radiology: Prelim report reviewed (normal.), See rad report PD MEDICAL DECISION MAKING - ED course Complexity details: reviewed results, considered differential (Chest pain and dyspnea with a normal chest x-ray but was told on an echocardiogram outpatient that she had a mass pushing on her heart. I think this warrants CT of the chest with contrast to evaluate based on those findings.), d/w patient, other (I talked with the personnel at the outpatient imaging center where she had her echocardiogram. They refused to send us a copy of the echo and stated she had to go through medical records at the [place]. I tried to describe HIPAA policy and rules to the person but they were not listening.) ED course: Unable to get through to med records at [place] for ECHO report. Departure - Departure Clinical Impression: Left-sided chest pain Dyspnea Qualifiers: Dyspnea type: dyspnea on exertion Qualified Code(s): R06.09 - Other forms of dyspnea Condition: Stable Record reviewed to determine appropriate education?: Yes
--- NOTE | 2022-02-08 13:36 | XRAY Report ---
PROCEDURE: Chest 1 View X-Ray INDICATIONS: Chest pain TECHNIQUE: One view of the chest was acquired. COMPARISON: 05/03/2020 FINDINGS: Surgical changes and devices: None. Lungs and pleura: No pleural effusions or pneumothorax. Lungs are clear. Mediastinum: Mediastinal contours appear normal. Heart size is normal. Bones and chest wall: No suspicious bony lesions. Overlying soft tissues appear unremarkable. IMPRESSION: No acute cardiopulmonary process demonstrated radiographically. No significant change from 05/03/2020 exam. Reviewed by: Flavio Bekc MD on 02/08/2022 1:35 PM PDT Approved by: Flavio Beck MD on 02/08/2022 1:35 PM PDT Station ID: [id number]
[2022-02-08] MEDS ORDERED: SODIUM CHLORIDE 0.9% 1,000 ML IV STA (13:52)
[2022-02-08] MEDS ORDERED: KETOROLAC 15 MG/ML VIAL IVP STA (13:52)
[2022-02-08] MEDS ORDERED: iohexoL-300 100 ML VIAL ONE (15:41)
--- NOTE | 2022-02-08 17:42 | CONSULTATION NOTE ---
Consultation Report: Called for assist with PIV placement, patient awaiting contrast CT. Pt with history of difficult placement, no visible vasculature, and multiple failed attempts. 20ga IV placed at R FA attempt x1 with Ultrasound. Easily aspirates and flushes. Patient tolerated the procedure without complication or complaint.
--- NOTE | 2022-02-08 19:41 | CT Report ---
PROCEDURE: CHEST WO INDICATIONS: DYSPNEA, ECHO REPORT=CHEST MASS TECHNIQUE: Noncontrast 1mm axial images were acquired from the pulmonary apices to the posterior costophrenic an gles. Axial 5 mm soft tissue kernel reconstructions were performed as well as 8 mm axial MIP and cor onal and sagittal 5 mm reformations. For radiation dose reduction, the following was used: automate d exposure control, adjustment of mA and/or kV according to patient size. COMPARISON: Chest radiographs dated same day and 05/03/2020 FINDINGS: Image quality: Diagnostic. Lungs and pleura: No acute air space opacities. No pleural effusions or pneumothorax. Central and peripheral airways are patent and normal in caliber. No suspicious pulmonary nodules or masses. No s eptal thickening or nodularity. Mediastinum: Heart size is normal. No pericardial effusion. No mediastinal adenopathy by size crit eria. Thoracic aorta and central pulmonary arteries are normal in size. Esophagus is normal in ke gabby. No hiatal hernia. In the absence of contrast, no visible cardiac mass lesions. Bones and chest wall: No suspicious bony lesions. No vertebral body compression fractures. No axil jojo or supraclavicular adenopathy by size criteria. The thyroid is normal in size and there are no incidental findings. No abnormal chest wall mass lesions identified. Abdomen: Visualized upper abdominal solid organs and bowel loops appear normal in the absence of con trast. IMPRESSION: CT chest without acute cardiopulmonary abnormalities. In the absence of intravenous contrast, no susp icious cardiac mass lesion identified. No pericardial effusion. No adenopathy. No suspicious chest wa ll abnormalities. If there is persistent clinical concern for cardiac or chest wall mass lesions, con work checker repeat imaging with intravenous contrast. CLINICAL RECOMMENDATION STATEMENTS: In patients <35 years with an ITN detected on CT, MRI, or extrathyroidal ultrasound, the Committee re commends further evaluation with dedicated thyroid ultrasound if the nodule is "e1 cm and has no susp icious imaging features, and if the patient has normal life expectancy. In patients "e35 years with an ITN detected on CT, MRI, or extrathyroidal ultrasound, the Committee r ecommends further evaluation with dedicated thyroid ultrasound if the nodule is "e1.5 cm and has no s uspicious imaging features, and if the patient has normal life expectancy. (ACR, 2014) Reviewed by: Carlton Lawson MD on 02/08/2022 7:40 PM PDT Approved by: Carlton Lawson MD on 02/08/2022 7:40 PM PDT Station ID: [id number]
--- NOTE | 2022-02-08 20:24 | ED Physician Documentation ---
ED Addendum - Addendum Addendum: 02/08/22 20:01 Pt signed out to me by Dr. Vazquez to follow up on CT scan. Patient is being evaluated for chest pain and dyspnea with exertion. She had an outpatient echo and was reportedly called today by the physician with report of "mass on chest". Plan was to obtain a CT scan with IV contrast (not angio) but patient is difficult for IV access. She has been here for several hours and anesthesia placed an IV in her forearm but it infiltrated after receiving IV dye. CT scan does not demonstrate any abnormalities. However patient remains slightly tachycardic. She denies having had previous evaluation for blood clot.As I am unable to apply PERC criteria given her Tachycardia, we discussed obtaining a D-dimer to at least Evaluate for a clot. Patient understands however that if D-dimer is abnormal then further testing is indicated and we will need to revisit placing another IV.Her oxygenation has remained normal. She does not appear labored with her breathing.Her troponin is negative. Patient's D-dimer is negative.We did try to call the [facility] emergency department and the physician there would also not speak to us to help obtain records. We also tried to call the phone number for the physician that called the patient earlier today and there was no answer at that office to see if there is someone election supervisor.It does not appear that we are going to be able to obtain the echo results to understand the concern. However, there is no mass seen on CT scan obtained here. Patient understands The limitations as IV contrast was not utilized and she is aware that she needs to follow-up with her primary care doctor on Friday when their office reopens. She is aware Of strict return precautions for any worsening symptoms. Departure - Departure Disposition: Home, Self Care Clinical Impression: Left-sided chest pain Dyspnea Qualifiers: Dyspnea type: dyspnea on exertion Qualified Code(s): R06.09 - Other forms of dyspnea Condition: Stable Instructions: ED Chest Pain Atypical Unkn Cause Comments: You were evaluated for chest pain and shortness of breath. We were unable to get the results of your heart ultrasound (echocardiogram). We did obtain a CT scan of your heart but were not able to do this with IV contrast. The CT scan tonight did not show any abnormalities but you may need to have a another test done as an outpatient to further evaluate The issue seen on your echocardiogram. Based on your lab testing, I did not see signs of a heart attack or pulmonary embolism. [facility] to discuss the next plan of care with your primary care doctor regarding your abnormal echocardiogram. Please keep your account director appointment for mid February. If it anytime you have any worsening symptoms please consider returning to the emergency department. Discharge Date/Time: 02/08/22 21:38
[2022-02-08 21:39] VITALS: BP 106/70
== END 2022-02-08 21:38 | disposition home or self-care (01) ==
LOC: ED 12:16
DX: R07.89 Other chest pain (principal); R06.09 Other forms of dyspnea
CPT/HCPCS: 36415; 80053; 83690; 83880; 84484; 85025; 85379; 86140; 93005; 96374; 99284

== ENCOUNTER 2022-02-15 07:59 | Emergency (ER) | payer OTHER ==
--- NOTE | 2022-02-15 09:54 | ED Physician Documentation ---
PD HPI CHEST PAIN - Stated complaint Stated Complaint: CHEST PAIN - Chief complaint Chief Complaint: Cardiac - History obtained from History obtained from: Patient - Additional information Additional information: The patient returns emergency department for chief complaint of elevated HR. Pt states she has been in the process of work-up for mechanical pain under her bilateral breasts (worse with inhalation and exhalation). She has been [facility], at which time she was told she had a mass pressing on her heart. However, a CT scan last week did not show any abnormal structures in her chest. Pt has had US of both legs to look for DVT, and this was negative. She is scheduled to see a ball assembler on the of this month for further evaluation. Pt went to the walk-in clinic today for a separate problem, and was told her HR was elevated, and she should come to the ED. Pt states she has had some "butterfly-like" sensations of palpitations in her chest, but no SOB. No unique pain with this sensation. Pain under the breasts comes and goes. Review of Systems Ten Systems: 10 systems reviewed and negative Constitutional: reports: Reviewed and negative Eyes: reports: Reviewed and negative Ears: reports: Reviewed and negative Nose: reports: Reviewed and negative Throat: reports: Reviewed and negative Cardiac: reports: Chest pain / pressure, Palpitations Respiratory: reports: Reviewed and negative GI: reports: Reviewed and negative : reports: Reviewed and negative Skin: reports: Reviewed and negative Musculoskeletal: reports: Reviewed and negative Neurologic: reports: Reviewed and negative Psychiatric: reports: Reviewed and negative Endocrine: reports: Reviewed and negative Immunocompromised: reports: Reviewed and negative PD PAST MEDICAL HISTORY - Past Medical History Cardiovascular: None Respiratory: None Neuro: Headaches, Migraines Endocrine/Autoimmune: None GI: GERD 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 HEENT: Other Psych: Anxiety, ADD/ADHD Musculoskeletal: Osteoarthritis Derm: Eczema - Past Surgical History Past Surgical History: No - Present Medications Home Medications: Ambulatory Orders Medication Instructions Recorded Confirmed Alprazolam [Xanax] 0.25 mg PO DAILY PRN 09/30/21 02/08/22 Omeprazole Magnesium [Prilosec] 10 mg PO DAILY 09/30/21 02/08/22 hydroCHLOROthiazide [Hydrodiuril] 12.5 mg PO DAILY 02/08/22 02/08/22 Metoprolol Succinate [Toprol Xl] 25 mg PO DAILY PRN #30 tablet 02/15/22 - Allergies Allergies/Adverse Reactions: Allergies Allergy/AdvReac Type Severity Reaction Status Date / Time No Known Drug Allergies Allergy Verified 02/15/22 08:27 - Social History Does the pt smoke?: No Smoking Status: Never smoker Does the pt drink ETOH?: No Does the pt have substance abuse?: No - Immunizations Immunizations are current?: Yes - POLST Patient has POLST: No PD ED PE NORMAL - Vitals Vital signs reviewed: Yes - General General: Alert and oriented X 3, No acute distress, Well developed/nourished - HEENT HEENT: Atraumatic, PERRL, EOMI, Moist mucous membranes - Neck Neck: Supple, no meningeal sign - Cardiac Cardiac: No murmur, Strong equal pulses, Other (Mild tachycardia, regular rhythm) - Respiratory Respiratory: No respiratory distress, Clear bilaterally - Abdomen Abdomen: Soft, Non tender, Non distended - Derm Derm: Normal color, Warm and dry, No rash - Extremities Extremities: No deformity, No edema - Neuro Neuro: Alert and oriented X 3 - Psych Psych: Normal mood, Normal affect Results - Vitals Vitals: Oxygen O2 Source Room air - EKG (time done) 0819 Rate: Rate (enter#) (112) Rhythm: Sinus tachycardia [place]: Normal Intervals: Normal CA QRS: Normal Ischemia: Normal ST segments Compare to prior EKG: Old EKG unavailable Computer interpretation: Agree with computer - Labs Labs: Laboratory Tests 02/15/22 10:18 TSH 0.80 PD MEDICAL DECISION MAKING - ED course Complexity details: reviewed results, re-evaluated patient, considered differential, d/w patient ED course: The patient was well-appearing but did have persistent sinus tachycardia in the 1 teens. She was given an oral dose of metoprolol as well as oral fluids. Regarding her ongoing pain, she had had extensive work-up with the exception of an ultrasound of her right upper quadrant, and so this was done. It did show fatty liver but no gallstones. EKG showed sinus tachycardia. The patient's heart rate did improve quite a bit after drinking water and taking the metoprolol, and was found to be right around 100 bpm. I felt she was stable for discharge home. Patient has had extensive work-up, including for DVT to address the concern for potential PE, and has cardiology appointment coming up early next week at which time she can discuss her concerns. We discussed the usual indications for return. Departure - Departure Disposition: 01 Home, Self Care Clinical Impression: Sinus tachycardia Chest pain Qualifiers: Chest pain type: chest pain on breathing Qualified Code(s): R07.1 - Chest pain on breathing Condition: Stable Instructions: ED Chest Pain Pleurisy Prescriptions: Metoprolol Succinate [Toprol Xl] 25 mg PO DAILY PRN #30 tablet PRN Reason: Cardiac Arrhythmia Comments: Your ultrasound does not show any gallbladder pathology. Your thyroid hormone levels are normal. I have reviewed your test results from your previous visits and at this point in time, no other acutely emergent condition has been identified. Your heart rate has been mildly elevated here in the emergency department, though this is improved a lot with fluids. Please continue to drink plenty of fluids at home. Take the medication prescribed and continue your plans to follow-up with cardiology next week. Your prescription has been electronically transmitted to [facility] in [place]. You may take the medication as needed if your heart rate is sustained above 100. Discharge Date/Time: 02/15/22 12:29
[2022-02-15] MEDS ORDERED: METOPROLOL SUCCINATE 25 MG TABLET PO STA (10:14)
--- NOTE | 2022-02-15 11:17 | Ultrasound Report ---
PROCEDURE: Abdomen Limited INDICATIONS: RUQ pain, "enlarged gall bladder" TECHNIQUE: Real-time scanning was performed of the abdominal and retroperitoneal organs, with image documentatio n. COMPARISON: None. FINDINGS: Liver: Liver is at upper limits of normal for size and heterogeneous in echotexture. Liver is diffus sabas echogenic. Gallbladder: Gallbladder is sonographically normal. No gallstones. Gallbladder wall measures 1.9 mm. No pericholecystic fluid. No sonographic Julien's sign. Biliary ducts: Intrahepatic bile ducts are non-dilated. Extrahepatic bile duct caliber measures 5.1 mm. Normal is 6-7 mm or less in diameter, or 10 mm or less post-cholecystectomy. Pancreas: Visualized portions of the pancreas are sonographically normal. Tail not well-visualized d ue to bowel gas and cannot be evaluated. Kidney: Right kidney measures 10.2 cm long. Right kidney is sonographically normal. Aorta: Visualiz ed aorta is normal in caliber at less than 3 cm. Miscellaneous: No free abdominal fluid. IMPRESSION: No sonographic evidence of cholelithiasis or cholecystitis. Echogenic liver. Finding typically represents fatty infiltration, however finding is nonspecific and other etiologies including hepatic cirrhosis can produce a similar appearance. Recommend correlation with clinical and laboratory data. Reviewed by: Monica Hameed MD, PhD on 02/15/2022 11:16 AM PDT Approved by: Monica Hameed MD, PhD on 02/15/2022 11:16 AM PDT Station ID: [id number]
[2022-02-15 12:29] VITALS: BP 135/84
== END 2022-02-15 12:29 | disposition home or self-care (01) ==
LOC: ED 07:59
DX: R00.0 Tachycardia, unspecified (principal); R07.1 Chest pain on breathing
CPT/HCPCS: 36415; 76705; 84443; 93005; 99284; A9270

== ENCOUNTER 2022-08-21 20:40 | Emergency (ER) | payer OTHER ==
[2022-08-21 20:57] VITALS: BP 141/100
--- NOTE | 2022-08-21 21:02 | ED Physician Documentation ---
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 HEENT: Other Psych: Anxiety, ADD/ADHD Musculoskeletal: Osteoarthritis Derm: Eczema - Past Surgical History Past Surgical History: No - Present Medications Home Medications: Ambulatory Orders Medication Instructions Recorded Confirmed Lurasidone HCl [Latuda] 40 mg PO DAILY 08/21/22 08/21/22 - Allergies Allergies/Adverse Reactions: Allergies Allergy/AdvReac Type Severity Reaction Status Date / Time No Known Drug Allergies Allergy Verified 08/21/22 20:57 - Social History Does the pt smoke?: No Smoking Status: Never smoker Does the pt drink ETOH?: No Does the pt have substance abuse?: No - Immunizations Immunizations are current?: Yes - POLST Patient has POLST: No Results - Vitals Vitals: Vital Signs - 24 hr 08/21/22 20:51 Temperature 36.2 C L Heart Rate 99 Respiratory 17 Rate Blood Pressure 141/100 H O2 Saturation 97 Oxygen O2 Source Room air
--- OUTSIDE RECORDS SUMMARY | 2022-08-21 21:03 | EXTERNAL MEDICAL SUMMARY RPT | Continuity of Care Document ---
:1990 Author Organization [facility] Address [address] [place] [address] Phone Allergies No information. Encounters No information. Functional Status No information. Immunizations No information. Medications No information. Problems No information. Procedures No information. Results/Labs test date author facility value unit interpret ation Result panel 1 (unknown) (no (unknown) (unknown) (no value) (units (unk nown) date) unknown) (unknown) (no (unknown) (unknown) [id number] (units (unkno wn) date) unknown) (unknown) (no (unknown) (unknown) 1. Normal (units (unkn own) date) exercise unknown) treadmill study for ischemia. (unknown) (no (unknown) (unknown) 1. The patient (units (unknown) date) was able to unknown) exercise for 6 minutes, 48 seconds on a standard (unknown) (no (unknown) (unknown) 06/17/22 (units (unkno wn) date) unknown) (unknown) (no (unknown) (unknown) [address] [place] [address] (units (unknown) date) unknown) (unknown) (no (unknown) (unknown) 2. Moderately (units ( unknown) date) reduced exercise unknown) capacity without angina. (unknown) (no (unknown) (unknown) 2. She had a (units (u nknown) date) somewhat unknown) accelerated heart rate response to exercise, with a (unknown) (no (unknown) (unknown) 3. She had an (units ( unknown) date) accelerated heart unknown) rate response to exercise with a resting heart (unknown) (no (unknown) (unknown) 3. She had no (units ( unknown) date) chest pain or unknown) other anginal symptoms. (unknown) (no (unknown) (unknown) 4. Her resting (units (unknown) date) ECG showed sinus unknown) tachycardia at [address] (unknown) (no (unknown) (unknown) Accession (units (unkn own) date) Number: unknown) [id number] (unknown) (no (unknown) (unknown) Age/Sex: 31 / F (units (unknown) date) Date of Service: unknown) (unknown) (no (unknown) (unknown) DARRYN Watkins (units ( unknown) date) [id number] unknown) (unknown) (no (unknown) (unknown) Ivan protocol (units (unknown) date) suggesting unknown) moderately reduced exercise capacity with an (unknown) (no (unknown) (unknown) COPIES MNE: (units (un known) date) STERO; unknown) (unknown) (no (unknown) (unknown) DATE OF SERVICE: (units (unknown) date) 06/17/2022 unknown) (unknown) (no (unknown) (unknown) DICTATING (units (unkn own) date) MD/COPIES TO: unknown) Ildefonso Nieves MD; Shirley Ruffin MD (unknown) (no (unknown) (unknown) : 1990 (units (unknown) date) Acct:[id number] unknown) (unknown) (no (unknown) (unknown) LEXUS of +29%, (units (u nknown) date) achieving 7.0 unknown) METs. (unknown) (no (unknown) (unknown) FINDINGS: (units (unkn own) date) unknown) (unknown) (no (unknown) (unknown) IMPRESSION: (units (un known) date) unknown) (unknown) (no (unknown) (unknown) INDICATIONS: The (units (unknown) date) patient is an unknown) obese 31-year-old female with exertional (unknown) (no (unknown) (unknown) [facility] (units (unknown) date) unknown) (unknown) (no (unknown) (unknown) Loc: DI (units (unkno wn) date) unknown) (unknown) (no (unknown) (unknown) Nuclear Medicine (units (unknown) date) Report unknown) (unknown) (no (unknown) (unknown) ORDERING (units (unkno wn) date) PROVIDER: Shirley unknown) (Sonia Ruffin MD (unknown) (no (unknown) (unknown) Ordering (units (unkno wn) date) Provider: unknown) Shirley Ruffin MD (unknown) (no (unknown) (unknown) PROCEDURE: (units (unk nown) date) Exercise unknown) treadmill stress test without imaging. (unknown) (no (unknown) (unknown) Patient: (units ( wn) date) Zunilda Oshea unknown) MR#: [id number] (unknown) (no (unknown) (unknown) Procedure: (units (unk n) date) Exercise unknown) treadmill NON NUC (unknown) (no (unknown) (unknown) RS/fn/KL (units (o wn) date) unknown) (unknown) (no (unknown) (unknown) Signed (units (o wn) date) unknown) (unknown) (no (unknown) (unknown) Zunilda Oshea (units (unknown) date) - unknown) (unknown) (no (unknown) (unknown) and reaching a (units (unknown) date) maximum of 169 unknown) BPM (89% of her predicted maximum). 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 (unknown) (no (unknown) (unknown) exercise except (units (unknown) date) for a rare, unknown) isolated PVC. (unknown) (no (unknown) (unknown) had a normal (units (u nknown) date) blood pressure unknown) response to exercise. (unknown) (no (unknown) (unknown) poor (units (o wn) date) cardiovascular unknown) fitness but there were no concerning arrhythmias. (unknown) (no (unknown) (unknown) rate of 103 bpm (units (unknown) date) increasing to 145 unknown) bpm within 3 minutes of exercise, suggesting (unknown) (no (unknown) (unknown) resting heart (units ( unknown) date) rate of 103 BPM unknown) increasing to 145 BPM after 3 minutes of exercise (unknown) (no (unknown) (unknown) segments. There (units (unknown) date) were no unknown) significant ST-segment shifts or arrhythmias with Result panel 2 (unknown) (no date) (unknown) (unknown) Negative (units (unkn own) unknown) (unknown) (no date) (unknown) (unknown) Negative (units (unkn own) unknown) Result panel 3 (unknown) (no date) (unknown) (unknown) (no value) (units (un known) unknown) (unknown) (no date) (unknown) (unknown) [id number] (units (unkn own) unknown) (unknown) (no date) (unknown) (unknown) 1. Normal (units (unk nown) exercise unknown) treadmill study for ischemia. (unknown) (no date) (unknown) (unknown) 1. The patient (units (unknown) was able to unknown) exercise for 6 minutes, 48 seconds on a standard (unknown) (no date) (unknown) (unknown) [address]units (unk nown) [address] unknown) (unknown) (no date) (unknown) (unknown) 2. (units (unkn own) Moderate-severe unknown) ly reduced exercise capacity without angina. (unknown) (no date) (unknown) (unknown) 2. She had a (units ( unknown) somewhat unknown) accelerated heart rate response to exercise, with a (unknown) (no date) (unknown) (unknown) 3. She had an (units (unknown) accelerated unknown) heart rate response to exercise with a resting (unknown) (no date) (unknown) (unknown) 3. She had no (units (unknown) chest pain or unknown) other anginal symptoms. (unknown) (no date) (unknown) (unknown) 4. Her resting (units (unknown) ECG showed unknown) sinus tachycardia at [address] (unknown) (no date) (unknown) (unknown) Accession (units (unk nown) Number: unknown) (unknown) (no date) (unknown) (unknown) Age/Sex: 31 / (units (unknown) F Date of unknown) Service: (unknown) (no date) (unknown) (unknown) [place], [place] (units (unknown) [id number] unknown) (unknown) (no date) (unknown) (unknown) Ivan protocol (units (unknown) suggesting unknown) moderate to severely reduced exercise capacity with (unknown) (no date) (unknown) (unknown) COPIES MNE: (units (u nknown) STERO; unknown) (unknown) (no date) (unknown) (unknown) DATE OF (units (unkn own) SERVICE: unknown) (unknown) (no date) (unknown) (unknown) DICTATING (units (unk nown) MD/COPIES TO: unknown) Ildefonso Nieves MD; Shirley Ruffin MD (unknown) (no date) (unknown) (unknown) : (units (unkn own) 1990 unknown) Acct:[id number] (unknown) (no date) (unknown) (unknown) Draft (units (unkn own) unknown) (unknown) (no date) (unknown) (unknown) LEXUS of +29 (units (un known) percent, unknown) achieving 7.0 METs. (unknown) (no date) (unknown) (unknown) FINDINGS: (units (unk nown) unknown) (unknown) (no date) (unknown) (unknown) IMPRESSION: (units (u nknown) unknown) (unknown) (no date) (unknown) (unknown) INDICATIONS: (units ( unknown) The patient is unknown) an obese 31-year-old female with exertional (unknown) (no date) (unknown) ([facility] (unknown) (no date) (unknown) (unknown) Loc: DI (units (unkn own) unknown) (unknown) (no date) (unknown) (unknown) Nuclear (units (unkn own) Medicine Report unknown) (unknown) (no date) (unknown) (unknown) ORDERING (units (unkn own) PROVIDER: unknown) Shirley Ruffin MD (Rishi) (unknown) (no date) (unknown) (unknown) Ordering (units (unkn own) Provider: unknown) (unknown) (no date) (unknown) (unknown) PROCEDURE: (units (un known) Exercise unknown) treadmill stress test without imaging. (unknown) (no date) (unknown) (unknown) Patient: (units (unkn own) Zunilda Oshea unknown) MR#: [id number] (unknown) (no date) (unknown) (unknown) Procedure: (units (un known) unknown) (unknown) (no date) (unknown) (unknown) RS/fn/KL (units (unkn own) unknown) (unknown) (no date) (unknown) (unknown) Dayo, (units (unk nown) Zunilda - MRN: unknown) [id number] (unknown) (no date) (unknown) (unknown) an (units (unkn own) unknown) (unknown) (no date) (unknown) (unknown) and reaching a (units (unknown) maximum of 169 unknown) BPM (89 percent of her predicted maximum). 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 (unknown) (no date) (unknown) (unknown) exercise (units (unkn own) except for a unknown) rare, isolated PVC. (unknown) (no date) (unknown) (unknown) had a normal (units ( unknown) blood pressure unknown) response to exercise. (unknown) (no date) (unknown) (unknown) heart (units (unkn own) unknown) (unknown) (no date) (unknown) (unknown) minutes (units (unkn own) unknown) (unknown) (no date) (unknown) (unknown) of exercise, (units ( unknown) but had no unknown) concerning arrhythmias. (unknown) (no date) (unknown) (unknown) rate of 103 (units (u nknown) beats per unknown) minute increasing to 145 beats per minute within 3 (unknown) (no date) (unknown) (unknown) resting heart (units (unknown) rate of 103 BPM unknown) increasing to 145 BPM after 3 minutes of exercise (unknown) (no date) (unknown) (unknown) segments. (units (unk nown) There were no unknown) significant ST-segment shifts or arrhythmias with Result panel 4 (unknown) (no (unknown) (unknown) (no value) (units (unk nown) date) unknown) (unknown) (no (unknown) (unknown) [id number] (units (unkno wn) date) unknown) (unknown) (no (unknown) (unknown) 1. Normal (units (unkn own) date) exercise unknown) treadmill study for ischemia. (unknown) (no (unknown) (unknown) 1. The patient (units (unknown) date) was able to unknown) exercise for 6 minutes, 48 seconds on a standard (unknown) (no (unknown) (unknown) [address] [place] [address] (units (unknown) date) unknown) (unknown) (no (unknown) (unknown) 2. Moderately (units ( unknown) date) reduced exercise unknown) capacity without angina. (unknown) (no (unknown) (unknown) 2. She had a (units (u nknown) date) somewhat unknown) accelerated heart rate response to exercise, with a (unknown) (no (unknown) (unknown) 3. She had an (units ( unknown) date) accelerated heart unknown) rate response to exercise with a resting heart (unknown) (no (unknown) (unknown) 3. She had no (units ( unknown) date) chest pain or unknown) other anginal symptoms. (unknown) (no (unknown) (unknown) 4. Her resting (units (unknown) date) ECG showed sinus unknown) tachycardia at [address] (unknown) (no (unknown) (unknown) Accession (units (unkn own) date) Number: unknown) (unknown) (no (unknown) (unknown) Age/Sex: 31 / F (units (unknown) date) Date of Service: unknown) (unknown) (no (unknown) (unknown) DARRYN Watkins (units ( unknown) date) [id number] unknown) (unknown) (no (unknown) (unknown) Ivan protocol (units (unknown) date) suggesting unknown) moderately reduced exercise capacity with an (unknown) (no (unknown) (unknown) COPIES MNE: (units (un known) date) STERO; unknown) (unknown) (no (unknown) (unknown) DATE OF SERVICE: (units (unknown) date) 06/17/2022 unknown) (unknown) (no (unknown) (unknown) DICTATING (units (unkn own) date) MD/COPIES TO: unknown) Ildefonso Nieves MD; Shirley Ruffin MD (unknown) (no (unknown) (unknown) : 1990 (units (unknown) date) Acct:[id number] unknown) (unknown) (no (unknown) (unknown) Draft (units (unkno wn) date) unknown) (unknown) (no (unknown) (unknown) LEXUS of +29%, (units (u nknown) date) achieving 7.0 unknown) METs. (unknown) (no (unknown) (unknown) FINDINGS: (units (unkn own) date) unknown) (unknown) (no (unknown) (unknown) IMPRESSION: (units (un known) date) unknown) (unknown) (no (unknown) (unknown) INDICATIONS: The (units (unknown) date) patient is an unknown) obese 31-year-old female with exertional (unknown) (no (unknown) (unknown) [facility] (units (unknown) date) unknown) (unknown) (no (unknown) (unknown) Loc: DI (units (unkno wn) date) unknown) (unknown) (no (unknown) (unknown) Nuclear Medicine (units (unknown) date) Report unknown) (unknown) (no (unknown) (unknown) ORDERING (units (unkno wn) date) PROVIDER: Shirley unknown) (Sonia Ruffin MD (unknown) (no (unknown) (unknown) Ordering (units (unkno wn) date) Provider: unknown) (unknown) (no (unknown) (unknown) PROCEDURE: (units (unk nown) date) Exercise unknown) treadmill stress test without imaging. (unknown) (no (unknown) (unknown) Patient: (units (unkno wn) date) Zunilda Oshea unknown) MR#: [id number] (unknown) (no (unknown) (unknown) Procedure: (units (unk nown) date) unknown) (unknown) (no (unknown) (unknown) RS/fn/KL (units (unkno wn) date) unknown) (unknown) (no (unknown) (unknown) Zunilda Oshea (units (unknown) date) - unknown) (unknown) (no (unknown) (unknown) and reaching a (units (unknown) date) maximum of 169 unknown) BPM (89% of her predicted maximum). She (unknown) (no (unknown) (unknown) dd: 06/17/2022 (units (unknown) date) 17:01:00 dt: unknown) 06/17/2022 18:11:00 (unknown) (no (unknown) (unknown) doc#: (units (unkno wn) date) [id number]/job#: unknown) [id number] (unknown) (no (unknown) (unknown) dyspnea, (units (unkno wn) date) atypical chest unknown) discomfort, and palpitations. (unknown) (no (unknown) (unknown) exercise except (units (unknown) date) for a rare, unknown) isolated PVC. (unknown) (no (unknown) (unknown) had a normal (units (u nknown) date) blood pressure unknown) response to exercise. (unknown) (no (unknown) (unknown) poor (units (unkno wn) date) cardiovascular unknown) fitness but there were no concerning arrhythmias. (unknown) (no (unknown) (unknown) rate of 103 bpm (units (unknown) date) increasing to 145 unknown) bpm within 3 minutes of exercise, suggesting (unknown) (no (unknown) (unknown) resting heart (units ( unknown) date) rate of 103 BPM unknown) increasing to 145 BPM after 3 minutes of exercise (unknown) (no (unknown) (unknown) segments. There (units (unknown) date) were no unknown) significant ST-segment shifts or arrhythmias with Result panel 5 (unknown) (no (unknown) (unknown) (no value) (units (unk nown) date) unknown) (unknown) (no (unknown) (unknown) [id number] (units (unkno wn) date) unknown) (unknown) (no (unknown) (unknown) 1. Normal (units (unkn own) date) exercise unknown) treadmill study for ischemia. (unknown) (no (unknown) (unknown) 1. The patient (units (unknown) date) was able to unknown) exercise for 6 minutes, 48 seconds on a standard (unknown) (no (unknown) (unknown) [address] [place] [address] (units (unknown) date) unknown) (unknown) (no (unknown) (unknown) 2. Moderately (units ( unknown) date) reduced exercise unknown) capacity without angina. (unknown) (no (unknown) (unknown) 2. She had a (units (u nknown) date) somewhat unknown) accelerated heart rate response to exercise, with a (unknown) (no (unknown) (unknown) 3. She had an (units ( unknown) date) accelerated heart unknown) rate response to exercise with a resting heart (unknown) (no (unknown) (unknown) 3. She had no (units ( unknown) date) chest pain or unknown) other anginal symptoms. (unknown) (no (unknown) (unknown) 4. Her resting (units (unknown) date) ECG showed sinus unknown) tachycardia at [address] (unknown) (no (unknown) (unknown) Accession (units (unkn own) date) Number: unknown) (unknown) (no (unknown) (unknown) Age/Sex: 31 / F (units (unknown) date) Date of Service: unknown) (unknown) (no (unknown) (unknown) [place], [place] (units ( unknown) date) [id number] unknown) (unknown) (no (unknown) (unknown) Ivan protocol (units (unknown) date) suggesting unknown) moderately reduced exercise capacity with an (unknown) (no (unknown) (unknown) COPIES MNE: (units (un known) date) STERO; unknown) (unknown) (no (unknown) (unknown) DATE OF SERVICE: (units (unknown) date) 06/17/2022 unknown) (unknown) (no (unknown) (unknown) DICTATING (units (unkn own) date) MD/COPIES TO: unknown) Ildefonso Nieves MD; Shirley Ruffin MD (unknown) (no (unknown) (unknown) : 1990 (units (unknown) date) Acct:[id number] unknown) (unknown) (no (unknown) (unknown) LEXUS of +29%, (units (u nknown) date) achieving 7.0 unknown) METs. (unknown) (no (unknown) (unknown) FINDINGS: (units (unkn own) date) unknown) (unknown) (no (unknown) (unknown) IMPRESSION: (units (un known) date) unknown) (unknown) (no (unknown) (unknown) INDICATIONS: The (units (unknown) date) patient is an unknown) obese 31-year-old female with exertional (unknown) (no (unknown) (unknown) [facility] (units (unknown) date) unknown) (unknown) (no (unknown) (unknown) Loc: DI (units (unkno wn) date) unknown) (unknown) (no (unknown) (unknown) Nuclear Medicine (units (unknown) date) Report unknown) (unknown) (no (unknown) (unknown) ORDERING (units (o wn) date) PROVIDER: Shirley unknown) (Sonia Ruffin MD (unknown) (no (unknown) (unknown) Ordering (units (o wn) date) Provider: unknown) (unknown) (no (unknown) (unknown) PROCEDURE: (units (unk nown) date) Exercise unknown) treadmill stress test without imaging. (unknown) (no (unknown) (unknown) Patient: (units (o wn) date) Zunilda Oshea unknown) MR#: [id number] (unknown) (no (unknown) (unknown) Procedure: (units (unk nown) date) unknown) (unknown) (no (unknown) (unknown) RS/fn/KL (units (o wn) date) unknown) (unknown) (no (unknown) (unknown) Signed (units (o wn) date) unknown) (unknown) (no (unknown) (unknown) Zunilda Oshea (units (unknown) date) - unknown) (unknown) (no (unknown) (unknown) and reaching a (units (unknown) date) maximum of 169 unknown) BPM (89% of her predicted maximum). She (unknown) (no (unknown) (unknown) dd: 06/17/2022 (units (unknown) date) 17:01:00 dt: unknown) 06/17/2022 18:11:00 (unknown) (no (unknown) (unknown) doc#: (units (o wn) date) [id number]/job#: unknown) [id number] (unknown) (no (unknown) (unknown) dyspnea, (units (unkno wn) date) atypical chest unknown) discomfort, and palpitations. (unknown) (no (unknown) (unknown) exercise except (units (unknown) date) for a rare, unknown) isolated PVC. (unknown) (no (unknown) (unknown) had a normal (units (u nknown) date) blood pressure unknown) response to exercise. (unknown) (no (unknown) (unknown) poor (units (unkno wn) date) cardiovascular unknown) fitness but there were no concerning arrhythmias. (unknown) (no (unknown) (unknown) rate of 103 bpm (units (unknown) date) increasing to 145 unknown) bpm within 3 minutes of exercise, suggesting (unknown) (no (unknown) (unknown) resting heart (units ( unknown) date) rate of 103 BPM unknown) increasing to 145 BPM after 3 minutes of exercise (unknown) (no (unknown) (unknown) segments. There (units (unknown) date) were no unknown) significant ST-segment shifts or arrhythmias with Social History No information. Vital Signs No information.
[2022-08-21 21:10] LABS: RAPID STREP SCREEN Negative (Negative)
== END 2022-08-21 21:12 | disposition left against medical advice (07) ==
LOC: ED 20:40
DX: Z53.21 Procedure and treatment not carried out due to patient leaving prior to being seen by health care provider (principal)
CPT/HCPCS: 87070; 87430

== ENCOUNTER 2022-11-21 09:52 | Emergency (ER) | payer OTHER ==
[2022-11-21 09:59] VITALS: BP 153/107
--- NOTE | 2022-11-21 10:50 | ED Physician Documentation ---
PD HPI OPHTHO - Stated complaint Stated Complaint: LT EYE PINK EYE/ BUMP ON EYEBALL - Chief complaint Chief Complaint: Heent - History obtained from History obtained from: Patient - History of Present Illness Timing - onset: How many days ago (4) Timing - duration: Days (4) Timing - details: Gradual onset, Still present Location: Left Quality / character: Burning, Throbbing Associated symptoms: Redness, Swelling, Tearing Contributing factors: Exposed to conjunctivitis Similar symptoms before: Diagnosis (conjunctivitis) Recently seen: Clinic - Additional information Additional information: Zunilda Oshea is a 32-year-old mother who has 2 children who are also affected with pinkeye. She went into the doctor 4 days ago and were prescribed some sulfa containing eyedrops. Her children were prescribed similar drops and her children resolved rapidly she has developed redness and now has some swelling on the white part of her eye. She does not have difficulty with her vision. She does not know of any prior sulfa allergy. Review of Systems Constitutional: denies: Fever Eyes: reports: Discharge, Irritation. 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 : None HEENT: Other Psych: Anxiety, ADD/ADHD Musculoskeletal: Osteoarthritis Derm: Eczema - Past Surgical History Past Surgical History: No - Present Medications Home Medications: Ambulatory Orders Medication Instructions Recorded Confirmed Lurasidone HCl [Latuda] 40 mg PO DAILY 08/21/22 08/21/22 Neomycin/Poly/Dex Ophth Drops 1 - 2 drops EACHEYE QID #5 ml 11/21/22 [Maxitrol Ophth Drops] - Allergies Allergies/Adverse Reactions: Allergies Allergy/AdvReac Type Severity Reaction Status Date / Time No Known Drug Allergies Allergy Verified 11/21/22 09:59 - Social History Does the pt smoke?: No Smoking Status: Never smoker Does the pt drink ETOH?: No Does the pt have substance abuse?: No - Immunizations Immunizations are current?: Yes - POLST Patient has POLST: No PD ED PE NORMAL - Vitals Vital signs reviewed: Yes (hypertensive) - General General: Alert and oriented X 3, No acute distress, Well developed/nourished - HEENT HEENT: Atraumatic, PERRL, EOMI, Other (The left eye shows injection of the sclera and there is some chemosis laterally. There is no significant drainage the right eye is minimally involved.) - Neck Neck: Supple, no meningeal sign, No bony TTP - Respiratory Respiratory: No respiratory distress - Derm Derm: Normal color, Warm and dry, No rash - Extremities Extremities: No deformity, No edema - Neuro Neuro: Alert and oriented X 3, press setter 2-12 intact, No motor deficit, No sensory deficit, Normal speech Eye Opening: Spontaneous Motor: Obeys Commands Verbal: Oriented GCS Score: 15 - Psych Psych: Normal mood, Normal affect Results - Vitals Vitals: Vital Signs - 24 hr 11/21/22 09:57 Temperature 36.8 C Heart Rate 93 Respiratory 20 Rate Blood Pressure 153/107 H O2 Saturation 99 Oxygen O2 Source Room air PD Medical Decision Making - ED course Complexity details: considered differential, d/w patient ED course: 30-year-old female who is recently started sulfa drops for conjunctivitis appears to have a conjunctivitis and this appears worse than when she started the drops. She has 2 children that have responded to these similar drops and I suspect the patient may have an irritation related to the sulfa and the drops. We will discontinue these drops and begin Maxitrol. Departure - Departure Disposition: 01 Home, Self Care Clinical Impression: Chemosis of left conjunctiva Conjunctivitis Qualifiers: Conjunctivitis type: acute Acute conjunctivitis type: viral Laterality: left Qualified Code(s): B30.9 - Viral conjunctivitis, unspecified Condition: Stable Instructions: ED Conjunctivitis Nonspecific Follow-Up: SIDNEY HATCH ARNP [Primary Care Provider] - Ildefonso St MD [Provider Admit Priv/Credential] - Prescriptions: Neomycin/Poly/Dex Ophth Drops [Maxitrol Ophth Drops] 1 - 2 drops EACHEYE QID #5 ml Comments: Zunilda, today it looks like you may be having a reaction to the sulfa in the eyedrops you were given. My recommendation is to discontinue the use of these drops and start the drops that we have E scribed to the [facility] in [place]. I also recommend the use of benadryl 25mg every 6 hours for the next 2 days.
--- NOTE | 2022-11-22 17:02 | ED Physician Documentation ---
ED Addendum - Addendum Addendum: 11/22/22 17:00 I was notified by the business unit director in the ED that the patient had called today stating that the drops she was prescribed yesterday also have sulfa in them. She was requesting a prescription for drops that do not have any sulfa. I did review Dr. Alvarado's note and found that she was prescribed drops Containing polymyxin B sulfate. As such, I did prescribe erythromycin ophthalmic drops which to my knowledge do not contain a sulfa compound. I have electronically transmitted this prescription to the pharmacy of the patient's choice on record. 11/22/22 17:01
== END 2022-11-21 11:08 | disposition home or self-care (01) ==
LOC: ED 09:52
DX: B30.9 Viral conjunctivitis, unspecified (principal)
CPT/HCPCS: 99282; 99283

== ENCOUNTER 2023-04-14 14:58 | Emergency (ER) | payer OTHER ==
[2023-04-14] MEDS ORDERED: SODIUM CHLORIDE 0.9% 1,000 ML IV STA (16:10)
--- NOTE | 2023-04-14 16:11 | ED Physician Documentation ---
History of Present Illness - Stated complaint Stated Complaint: DEHYDRATION - Chief complaint Chief Complaint: General - History obtained from History obtained from: Patient - History of Present Illness Timing: Today Pain level max: 0 Pain level now: 0 - Additonal information Additional information: Patient is a 32-year-old female who presents to the emergency department stating that she feels dehydrated. She states that she has felt weak and dizzy, occasionally lightheaded. She states that she has had mild nausea. She states that she has been drinking water but does not feel better. She states that she was in [place] and was drinking water continuously but has not been drinking as much water since she arrived in [place]. No chest pain. No shortness of breath. No abdominal pain. No vomiting. No diarrhea. No fevers. No chills. No cough. No congestion. Denies any possibility of . Review of Systems Constitutional: denies: Fever, Chills Respiratory: denies: Cough GI: denies: Nausea, Vomiting, Diarrhea Skin: denies: Rash Musculoskeletal: denies: Neck pain, Back pain Neurologic: denies: Headache PD PAST MEDICAL HISTORY - Past Medical History Cardiovascular: None Respiratory: None Neuro: Headaches, Migraines Endocrine/Autoimmune: None GI: GERD RISK INTERN: None : None HEENT: Other Psych: Anxiety, ADD/ADHD Musculoskeletal: Osteoarthritis Derm: Eczema - Past Surgical History Past Surgical History: No - Present Medications Home Medications: Ambulatory Orders Medication Instructions Recorded Confirmed Lurasidone HCl [Latuda] 40 mg PO DAILY 08/21/22 08/21/22 Neomycin/Poly/Dex Ophth Drops 1 - 2 drops EACHEYE QID #5 ml 11/21/22 [Maxitrol Ophth Drops] Erythromycin Ophth Oint [Ilotycin 1 applic OPTH BID 7 Days #1 gm 11/22/22 Ophth Oint] - Allergies Allergies/Adverse Reactions: Allergies Allergy/AdvReac Type Severity Reaction Status Date / Time Sulfa (Sulfonamide Allergy Itching Verified 04/14/23 15:07 Antibiotics) - Social History Does the pt smoke?: No Smoking Status: Never smoker Does the pt drink ETOH?: No Does the pt have substance abuse?: No - Immunizations Immunizations are current?: Yes - POLST Patient has POLST: No PD ED PE NORMAL - Vitals Vital signs reviewed: Yes - General General: Alert and oriented X 3, No acute distress - HEENT HEENT: Moist mucous membranes - Neck Neck: Supple, no meningeal sign - Cardiac Cardiac: RRR - Respiratory Respiratory: No respiratory distress, Clear bilaterally - Abdomen Abdomen: Soft, Non tender, Non distended - Derm Derm: Warm and dry - Extremities Extremities: No edema - Neuro Neuro: Alert and oriented X 3, torch burner 2-12 intact, No motor deficit, No sensory deficit, Normal speech, Other (normal cerebellar testing. normal gait. no nystagmus) Eye Opening: Spontaneous Motor: Obeys Commands Verbal: Oriented GCS Score: 15 - Psych Psych: Normal mood, Normal affect Results - Vitals Vitals: Vital Signs - 24 hr 04/14/23 04/14/23 04/14/23 15:07 17:13 17:37 Temperature 36.5 C Heart Rate 83 86 92 Respiratory 16 23 21 Rate Blood Pressure 150/90 H 134/101 H 141/97 H O2 Saturation 98 100 99 04/14/23 17:53 Temperature Heart Rate 74 Respiratory 15 Rate Blood Pressure 147/87 H O2 Saturation 99 Oxygen O2 Source Room air - EKG (time done) 1625 EKG releavant findings:: EKG personally interpreted by author of this note. Relevant findings are: Rate: Rate (enter#) (85) Rhythm: NSR [place]: Normal Intervals: Normal IA QRS: Normal Ischemia: Normal ST segments - Labs Labs: Laboratory Tests 04/14/23 04/14/23 04/14/23 16:20 16:20 16:30 WBC 10.4 RBC 4.83 Hgb 13.7 Hct 42.7 MCV 88.4 MCH 28.4 MCHC 32.1 RDW 14.0 Plt Count 331 MPV 10.0 Neut # (Auto) 6.5 Lymph # (Auto) 3.1 [place] # (Auto) 0.5 Eos # (Auto) 0.3 Baso # (Auto) 0.0 Absolute Nucleated RBC 0.00 Nucleated RBC % 0.0 Sodium 132 L Potassium 3.9 Chloride 98 L Carbon Dioxide 27 Anion Gap 7.0 BUN 12 Creatinine 0.8 Estimated GFR (MDRD) 101 Glucose 87 Calcium 10.0 Total Bilirubin 0.3 AST 17 ALT 15 Alkaline Phosphatase 77 Total Protein 7.7 Albumin 4.3 Globulin 3.4 Albumin/Globulin Ratio 1.3 Lipase 40 Urine Color YELLOW Urine Clarity CLEAR Urine pH 7.0 Ur Specific [place] <=1.005 Urine Protein NEGATIVE Urine Glucose (UA) NEGATIVE Urine Ketones NEGATIVE Urine Occult Blood NEGATIVE Urine Nitrite NEGATIVE Urine Bilirubin NEGATIVE Urine Urobilinogen 0.2 (NORMAL) Ur Leukocyte Esterase NEGATIVE Ur Microscopic Review NOT INDICATED Urine Culture Comments NOT INDICATED Urine HCG, Qual 04/14/23 16:30 WBC RBC Hgb Hct MCV MCH MCHC RDW Plt Count MPV Neut # (Auto) Lymph # (Auto) [place] # (Auto) Eos # (Auto) Baso # (Auto) Absolute Nucleated RBC Nucleated RBC % Sodium Potassium Chloride Carbon Dioxide Anion Gap BUN Creatinine Estimated GFR (MDRD) Glucose Calcium Total Bilirubin AST ALT Alkaline Phosphatase Total Protein Albumin Globulin Albumin/Globulin Ratio Lipase Urine Color Urine Clarity Urine pH Ur Specific [place] Urine Protein Urine Glucose (UA) Urine Ketones Urine Occult Blood Urine Nitrite Urine Bilirubin Urine Urobilinogen Ur Leukocyte Esterase Ur Microscopic Review Urine Culture Comments Urine HCG, Qual NEGATIVE PD Medical Decision Making - ED course Complexity details: reviewed results, re-evaluated patient, considered diffe rential, d/w patient ED course: Patient complains of feeling lightheaded, dizzy. She feels dehydrated. Laboratory studies are consistent with dehydration, mild hyponatremia. She was given IV. Normal Shannan, and all of her symptoms have resolved. She states that she has no further symptoms at this time. We will have her follow up with her PCP for further care. Patient is well appearing, non-toxic. Afebrile. Patient counseled regarding signs and symptoms for which I believe and urgent re- evaluation would be necessary. Patient with good understanding of and agreement to plan and is comfortable going home at this timeThis document was made in part using voice recognition software. While efforts are made to proofread this document, sound alike and grammatical errors may occur. Departure - Departure Disposition: 01 Home, Self Care Clinical Impression: Dehydration, Hyponatremia Condition: Good Instructions: ED Dehydration Follow-Up: SINAN CHARLES PA-C [Primary Care Provider] - Comments: Please make sure you are drinking plenty of water at home. Please follow-up with your doctor for further care. Please return if you worsen. Forms: PCP List Discharge Date/Time: 04/14/23 17:54
[2023-04-14 16:26] LABS: BASOPHILS % (AUTO) 0.4 %; EOSINOPHILS # (AUTO) 0.3 10^3/uL (0.0-0.7); EOSINOPHILS % (AUTO) 2.5 %; HCT - HEMATOCRIT 42.7 % (37.0-47.0); HGB - HEMOGLOBIN 13.7 g/dL (12.0-16.0); LYMPHOCYTES # (AUTO) 3.1 10^3/uL (1.5-3.5); LYMPHOCYTES % (AUTO) 29.4 %; MEAN CORPUSCULAR HEMOGLOBIN 28.4 pg (27.0-31.0); MEAN CORPUSCULAR HGB CONC 32.1 g/dL (32.0-36.0); MEAN CORPUSCULAR VOLUME 88.4 fL (81.0-99.0); MONOCYTES # (AUTO) 0.5 10^3/uL (0.0-1.0); MONOCYTES % (AUTO) 4.8 %; NEUTROPHILS # (AUTO) 6.5 10^3/uL (1.5-6.6); NEUTROPHILS % (AUTO) 62.5 %; PLT - PLATELET COUNT 331 10^3/uL (130-450); RED BLOOD COUNT 4.83 10^6/uL (4.20-5.40); WHITE BLOOD COUNT 10.4 x10^3/uL (4.8-10.8)
[2023-04-14 16:40] LABS: BILIRUBIN,URINE NEGATIVE (NEGATIVE); GLUCOSE, URINE (UA) NEGATIVE (NEGATIVE); KETONES,URINE (UA) NEGATIVE (NEGATIVE); LEUKOCYTE ESTERASE, URINE NEGATIVE (NEGATIVE); NITRITE,URINE NEGATIVE (NEGATIVE); OCCULT BLOOD,URINE NEGATIVE (NEGATIVE); PROTEIN,URINE NEGATIVE (NEGATIVE); UROBILINOGEN,URINE 0.2 (NORMAL) E.U./dL (NORMAL)
[2023-04-14 16:40] LABS: ALBUMIN 4.3 g/dL (3.2-5.5); ALBUMIN/GLOBULIN RATIO 1.3 (1.0-2.2); BILIRUBIN,TOTAL 0.3 mg/dL (0.2-1.0); CREATININE 0.8 mg/dL (0.6-1.3); POTASSIUM 3.9 mmol/L (3.5-4.5); TOTAL PROTEIN 7.7 g/dL (6.4-8.9)
[2023-04-14 16:43] LABS: CLARITY,URINE CLEAR (CLEAR)
[2023-04-14 16:46] LABS: HCG UR QUAL NEGATIVE
[2023-04-14 17:40] VITALS: O2SAT 99
[2023-04-14 17:57] VITALS: BP 147/87
== END 2023-04-14 17:54 | disposition home or self-care (01) ==
LOC: ED 14:58
DX: E87.1 Hypo-osmolality and hyponatremia (principal); E86.0 Dehydration
CPT/HCPCS: 36415; 80053; 81001; 81003; 81025; 83690; 85025; 87086; 93005; 96360; 99284

== ENCOUNTER 2023-10-14 15:06 | Emergency (ER) | payer OTHER ==
[2023-10-14 16:02] LABS: BASOPHILS % (AUTO) 0.5 %; EOSINOPHILS # (AUTO) 0.6 10^3/uL (0.0-0.7); EOSINOPHILS % (AUTO) 6.6 %; HCT - HEMATOCRIT 41.4 % (37.0-47.0); HGB - HEMOGLOBIN 13.4 g/dL (12.0-16.0); LYMPHOCYTES # (AUTO) 2.8 10^3/uL (1.5-3.5); LYMPHOCYTES % (AUTO) 32.4 %; MEAN CORPUSCULAR HEMOGLOBIN 28.1 pg (27.0-31.0); MEAN CORPUSCULAR HGB CONC 32.4 g/dL (32.0-36.0); MEAN CORPUSCULAR VOLUME 86.8 fL (81.0-99.0); MONOCYTES # (AUTO) 0.5 10^3/uL (0.0-1.0); MONOCYTES % (AUTO) 5.4 %; NEUTROPHILS # (AUTO) 4.7 10^3/uL (1.5-6.6); PLT - PLATELET COUNT 251 10^3/uL (130-450); RED BLOOD COUNT 4.77 10^6/uL (4.20-5.40); WHITE BLOOD COUNT 8.5 x10^3/uL (4.8-10.8)
[2023-10-14 16:18] LABS: ALBUMIN 4.3 g/dL (3.2-5.5); ALBUMIN/GLOBULIN RATIO 1.4 (1.0-2.2); BILIRUBIN,TOTAL 0.4 mg/dL (0.2-1.0); CREATININE 0.7 mg/dL (0.6-1.3); POTASSIUM 3.3 mmol/L (3.5-4.5); TOTAL PROTEIN 7.4 g/dL (6.4-8.9)
--- NOTE | 2023-10-14 17:56 | ED Physician Documentation ---
PD HPI ABD PAIN - Stated complaint Stated Complaint: DEHYDRATION,LOWER ABD PX - Chief complaint Chief Complaint: Abd Pain - History obtained from History obtained from: Patient - History of Present Illness Timing - onset: How many days ago (2-3 days of some nausea and less oral intake. No vomiting. No abd pain.) Timing - duration: Days Timing - details: Gradual onset, Still present Quality: No: Cramping, Aching, Pain Recently seen: Surgery (had gastric sleeve bariatric surgery and hiatal hernia repiar at [facility] 5 weeks ago. Has been doing well and advancing diet very slightly. some nausea without vomtiing past few days. Feeling dehydrated.) Review of Systems Constitutional: denies: Fever, Chills GI: reports: Nausea. 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 : None HEENT: Other Psych: Anxiety, ADD/ADHD Musculoskeletal: Osteoarthritis Derm: Eczema - Past Surgical History Past Surgical History: Yes - Present Medications Home Medications: Ambulatory Orders Medication Instructions Recorded Confirmed Lurasidone HCl [Latuda] 40 mg PO DAILY 08/21/22 10/14/23 Neomycin/Poly/Dex Ophth Drops 1 - 2 drops EACHEYE QID #5 ml 11/21/22 10/14/23 [Maxitrol Ophth Drops] Erythromycin Ophth Oint [Ilotycin 1 applic OPTH BID 7 Days #1 gm 11/22/22 10/14/23 Ophth Oint] - Allergies Allergies/Adverse Reactions: Allergies Allergy/AdvReac Type Severity Reaction Status Date / Time Sulfa (Sulfonamide Allergy Itching Verified 10/14/23 15:25 Antibiotics) - Social History Does the pt smoke?: No Smoking Status: Never smoker Does the pt drink ETOH?: No Does the pt have substance abuse?: No - Immunizations Immunizations are current?: Yes - POLST Patient has POLST: No PD ED PE NORMAL - Vitals Vital signs reviewed: Yes - General General: Alert and oriented X 3, Well developed/nourished - Neck Neck: Supple, no meningeal sign, No adenopathy - Cardiac Cardiac: RRR, No murmur - Respiratory Respiratory: Clear bilaterally - Abdomen Abdomen: Normal bowel sounds, Soft, Non tender, Non distended, No organomegaly, Other (surgical wounds healing okay without infection. ) Results - Vitals Vitals: Vital Signs - 24 hr 10/14/23 10/14/23 10/14/23 15:25 19:51 21:21 Temperature 36.9 C 37.6 C Heart Rate 89 80 104 H Respiratory 18 18 18 Rate Blood Pressure 142/94 H 148/96 H 159/97 H O2 Saturation 99 98 100 Oxygen O2 Source Room air - Labs Labs: Laboratory Tests 10/14/23 10/14/23 10/14/23 15:40 15:40 15:56 WBC 8.5 RBC 4.77 Hgb 13.4 Hct 41.4 MCV 86.8 MCH 28.1 MCHC 32.4 RDW 15.0 Plt Count 251 MPV 11.0 H Neut # (Auto) 4.7 Lymph # (Auto) 2.8 [place] # (Auto) 0.5 Eos # (Auto) 0.6 Baso # (Auto) 0.0 Absolute Nucleated RBC 0.00 Nucleated RBC % 0.0 Sodium Potassium Chloride Carbon Dioxide Anion Gap BUN Creatinine Estimated GFR (MDRD) Glucose Calcium Magnesium Total Bilirubin AST ALT Alkaline Phosphatase Total Protein Albumin Globulin Albumin/Globulin Ratio Lipase Urine Color YELLOW Urine Clarity HAZY Urine pH 6.5 Ur Specific [place] >=1.030 H Urine Protein TRACE Urine Glucose (UA) NEGATIVE Urine Ketones >=80 H Urine Occult Blood LARGE H Urine Nitrite NEGATIVE Urine Bilirubin SMALL H Urine Urobilinogen 0.2 (NORMAL) Ur Leukocyte Esterase NEGATIVE Urine RBC 6-10 H Urine WBC 0-3 Ur Squamous Epith Cells NONE SEEN Amorphous Sediment Moderate Urine Bacteria None Seen Ur Microscopic Review INDICATED Urine Culture Comments NOT INDICATED Urine HCG, Qual NEGATIVE 10/14/23 10/14/23 15:56 15:56 WBC RBC Hgb Hct MCV MCH MCHC RDW Plt Count MPV Neut # (Auto) Lymph # (Auto) [place] # (Auto) Eos # (Auto) Baso # (Auto) Absolute Nucleated RBC Nucleated RBC % Sodium 138 Potassium 3.3 L Chloride 104 Carbon Dioxide 24 Anion Gap 10.0 BUN 21 H Creatinine 0.7 Estimated GFR (MDRD) 117 Glucose 82 Calcium 10.0 Magnesium 1.6 L Total Bilirubin 0.4 AST 18 ALT 17 Alkaline Phosphatase 67 Total Protein 7.4 Albumin 4.3 Globulin 3.1 Albumin/Globulin Ratio 1.4 Lipase 167 H Urine Color Urine Clarity Urine pH Ur Specific [place] Urine Protein Urine Glucose (UA) Urine Ketones Urine Occult Blood Urine Nitrite Urine Bilirubin Urine Urobilinogen Ur Leukocyte Esterase Urine RBC Urine WBC Ur Squamous Epith Cells Amorphous Sediment Urine Bacteria Ur Microscopic Review Urine Culture Comments Urine HCG, Qual PD Medical Decision Making - ED course Complexity details: reviewed results, considered differential (had gastric sleeve and hiatal hernia repair just over a month ago and has been doing okay. [place] she was not able to get preferred amount of fluid in the past few days and feeling lightheaded. Called her surgery clinic and they directed to come to ER for IV fluids. No vomiting. ), d/w patient ED course: no vomting nor abd pain. Does not sound obstructive. volume depleted and will give IV fluids. Departure - Departure Disposition: 01 Home, Self Care Clinical Impression: Volume depletion, Bariatric surgery status Condition: Stable Record reviewed to determine appropriate education?: Yes Instructions: ED Dehydration Comments: Continue with your current diet and intake to the best of your ability. Your basic electrolytes and blood count were good here. You were given a couple liters of fluid for volume hydration. Follow-up with your bariatric surgeon. Return if needed. Forms: PCP List
[2023-10-14] MEDS: SODIUM CHLORIDE 0.9% 2,000 ML IV STA (19:36)
[2023-10-14 20:02] LABS: BILIRUBIN,URINE SMALL (NEGATIVE); GLUCOSE, URINE (UA) NEGATIVE (NEGATIVE); KETONES,URINE (UA) >=80 mg/dL (NEGATIVE); LEUKOCYTE ESTERASE, URINE NEGATIVE (NEGATIVE); NITRITE,URINE NEGATIVE (NEGATIVE); OCCULT BLOOD,URINE LARGE (NEGATIVE); PH,URINE 6.5 PH (5.0-7.5); PROTEIN,URINE TRACE mg/dL (NEGATIVE); UROBILINOGEN,URINE 0.2 (NORMAL) E.U./dL (NORMAL)
[2023-10-14 20:05] LABS: CLARITY,URINE HAZY (CLEAR)
[2023-10-14 20:06] LABS: HCG UR QUAL NEGATIVE
[2023-10-14 20:21] LABS: SQUAMOUS EPITHELIAL CELL,UR NONE SEEN (<= Few); WBC,URINE 0-3 /HPF (0-5)
[2023-10-14 20:22] LABS: AMORPHOUS SEDIMENT,UR Moderate /LPF; BACTERIA,URINE None Seen /HPF (None Seen)
--- NOTE | 2023-10-14 21:03 | ED Physician Documentation ---
ED Addendum - Addendum Addendum: 10/14/23 21:02 The patient was signed out to me at change of shift, pending finishing IV fluids after presenting feeling dehydrated. She is a recent bariatric surgery patient. The patient's labs were unremarkable and she was feeling much better after IV fluids were completed. The patient was stable for discharge home. Final pression: See original note Disposition: Home in stable and improved condition.
[2023-10-14 23:12] VITALS: BP 164/109; O2SAT 99
== END 2023-10-14 22:40 | disposition home or self-care (01) ==
LOC: ED 15:06
DX: E86.9 Volume depletion, unspecified (principal); Z98.84 Bariatric surgery status
CPT/HCPCS: 36415; 80053; 81001; 81003; 81025; 83690; 83735; 85025; 87086; 96360; 96361; 99283

== ENCOUNTER 2023-11-14 08:00 | Outpatient (CLI) | payer OTHER ==
[2023-11-15 14:30] LABS: BACTERIAL VAGINOSIS DNA NEGATIVE (NEGATIVE); CANDIDA GLABRATA DNA NEGATIVE (NEGATIVE); CANDIDA GROUP DNA POSITIVE (NEGATIVE); CANDIDA KRUSEI DNA NEGATIVE (NEGATIVE); TRICHOMONAS VAGINALIS DNA NEGATIVE (NEGATIVE)
== END 2023-11-14 23:59 | disposition home or self-care (01) ==
LOC: LAB.N 08:00
PROVIDERS: ATTEND Family Medicine
DX: N89.8 Other specified noninflammatory disorders of vagina (principal)
CPT/HCPCS: 81514